=== PATIENT | female | born 1955 | race Caucasian/White ===

== ENCOUNTER 2023-11-22 06:03 | Outpatient (REF) | payer MEDICARE, SELFPAY ==
[2023-11-22 10:39] LABS: MANUAL DIFF FLAG NO
[2023-11-22 10:52] LABS: Basophils Percent Auto 0.5 % (0-2); Eosinophils Absolute Auto 0.2 X10*3/uL (0.0-0.4); Eosinophils Percent Auto 3.3 % (0-4); Hematocrit 45.8 % (37.0-47.0); Hemoglobin 15.2 g/dl (12.0-16.0); Imm Gran Abs Auto 0.01 X10*3/uL (0.00-0.03); Imm Gran Pct Auto 0.2 % (0.0-0.4); Lymphocytes Absolute Auto 2.4 X10*3/uL (1.2-4.9); Lymphocytes Percent Auto 41.8 % (20-40); Mean Corpuscular HGB Conc 33.2 g/dl (31.0-35.0); Mean Corpuscular Hemoglobin 31.7 pg (27.0-33.0); Mean Corpuscular Volume 95.4 fL (80.0-98.0); Mean Platelet Volume 11.6 fL (9.4-12.3); Monocytes Absolute Auto 0.5 X10*3/uL (0.1-1.2); Monocytes Percent Auto 7.7 % (2-11); Neutrophils Absolute Auto 2.7 x10*3/uL (2.0-8.3); Neutrophils Percent Auto 46.5 % (45-73); Platelet Count 278 X10*3/uL (160-400); Red Cell Distribution Width 12.3 % (11.0-16.0); White Blood Count 5.8 X10*3/uL (4.8-10.8)
[2023-11-22 11:22] LABS: Anion Gap 14 (12-20); Blood Urea Nitrogen 16 mg/dL (9-16); Calcium 9.7 mg/dL (8.4-10.2); Carbon Dioxide 23 mmol/L (22-29); Chloride 107 mmol/L (96-108); Cholesterol 265 mg/dL (<200); Estimated Glomerular Filt Rate > 60; Glucose Random 93 mg/dL (60-115); HDL Cholesterol 49 mg/dL (>40); LDL Cholesterol Calculated 189 mg/dL (<100); Sodium 140 mmol/L (135-145); TSH reflex Free T4 5.35 uIU/mL (0.32-4.0); Triglycerides 139 mg/dL (<150)
[2023-11-22 13:01] LABS: Free T4 (Free Thyroxine) 1.05 ng/dL (0.71-1.85)
== END 2023-11-22 06:04 | disposition home or self-care (01) ==
LOC: HO.HMGCLDS 06:03
PROVIDERS: PCP Student in an Organized Health Care Education/Training Program; Visit Provider Student in an Organized Health Care Education/Training Program
DX: Z00.00 Encounter for general adult medical examination without abnormal findings (principal); E03.9 Hypothyroidism, unspecified; E78.2 Mixed hyperlipidemia
CPT/HCPCS: 36415; 80048; 80061; 84439; 84443; 85025

== ENCOUNTER 2024-01-23 12:53 | Outpatient (REF) | payer MEDICARE, SELFPAY ==
[2024-01-23 16:36] LABS: Anion Gap 13 (12-20); Blood Urea Nitrogen 22 mg/dL (9-16); Calcium 10.3 mg/dL (8.4-10.2); Carbon Dioxide 26 mmol/L (22-29); Chloride 104 mmol/L (96-108); Estimated Glomerular Filt Rate > 60; Glucose Random 101 mg/dL (60-115); Sodium 139 mmol/L (135-145)
[2024-01-23 16:52] LABS: Free T4 (Free Thyroxine) 1.15 ng/dL (0.71-1.85); Thyroid Stimulating Hormone 1.86 uIU/mL (0.32-4.0)
== END 2024-01-23 12:54 | disposition home or self-care (01) ==
LOC: HO.HMGCLDS 12:53
PROVIDERS: PCP Student in an Organized Health Care Education/Training Program; Visit Provider Student in an Organized Health Care Education/Training Program
DX: E03.9 Hypothyroidism, unspecified (principal)
CPT/HCPCS: 36415; 80048; 84439; 84443

== ENCOUNTER 2025-04-19 10:30 | Outpatient (AMB) | payer MEDICARE, SELFPAY ==
--- NOTE | 2025-04-19 10:52 | MHC.PC.OV ---
Vital Signs 04/19/25 11:00 04/19/25 13:13 Height 5 ft 5.35 in Weight 188 lb 6 oz BMI 31.0 BP 161/89 H 158/90 H Blood Pressure Location Rt brachial Position Sitting Respiration 16 Pulse 89 Pulse Source Pulse Oximeter Temp 98.1 F Temp Source Temporal Artery Scan Pulse Oximetry (%) 99 Oxygen Delivery Method Room Air Intake Visit Reasons: Establish Care Automatic Trimming Sewer Required: No Accompanied by: Self / Same As Patient Allergies Tetanus Vaccines and Toxoid Adverse Reaction (Mild, Verified 04/19/25 13:14) Swelling Medication List - Last Reconciled 04/19/25 by Lynn Gimenez PA-C No Known Home Meds Tobacco use date assessed: 04/19/25 Fall risk assessment: No Falls in past year Last assessed Fall Risk: 04/19/25 Dental Screening Dental Screen Date: 04/19/25 Did you have a dental visit in the last 12 months?: Yes Did you have a dental problem in the last 6 months where you did not have access to dental care?: No Was dental information given to patient?: Patient has dentist HPI Establish Care HPI Details The patient is a 70-year-old female presenting for a new patient appointment with hypertension, thyroid dysfunction, and for preventative care measures. The patient reports a history of hypertension with blood pressure readings fluctuating around 140/80 mmHg, occasionally reaching 158/90 mmHg. She has been advised to monitor her blood pressure at home, and there is a plan to start low-dose lisinopril. The patient has a history of thyroid dysfunction, previously managed with medication that caused adverse effects such as palpitations. She self-weaned off the medication due to these side effects and is considering endocrinology referral for further management. The patient has been informed of her elevated cholesterol levels, with a previous reading of 250 mg/dL. Lifestyle modifications have been discussed to manage her cholesterol levels without immediate pharmacological intervention. The patient is overweight and has expressed interest in weight management strategies, including potential pharmacotherapy. She engages in regular physical activity, such as walking, and has recently purchased a weighted vest to enhance her exercise routine. Preventative care measures include scheduling a mammogram and bone density scan, as well as routine blood work to assess various health parameters. Social History - Exercise: Engages in regular walking and uses a weighted vest for enhanced physical activity. - Nutrition: Cooks meals using home-grown produce, indicating a focus on healthy eating. [facility] Medical History (Updated 04/19/25 @ 13:46 by Lynn Gimenez PA-C) Preventative health care Hypertension Heart murmur Pure hypercholesterolemia, unspecified Hyperlipidemia Class 1 obesity with body mass index (BMI) of 31.0 to 31.9 in adult Thyroid disease Family History Father CHF (congestive heart failure) Mother Glaucoma Alzheimer dementia Social History Housing: House Alcohol intake: current Alcohol intake frequency: does not drink Patient Tobacco Use Status: Current everyday Tobacco user Tobacco use type: Cigarette service: No Current occupational status: retired Cognitive needs: No Hearing needs: No Vision needs: Yes (rx glasses) Questionnaire PHQ-9 Over the last 2 weeks, how often have you been bothered by any of the following problems? 1. Little interest or pleasure in doing things: not at all 2. Feeling down, depressed, or hopeless: not at all 3. Trouble falling or staying asleep, or sleeping too much: not at all 4. Feeling tired or having little energy: not at all 5. Poor appetite or overeating: not at all 6. Feeling bad about yourself - or that you are a failure or have let yourself or your family down: not at all 7. Trouble concentrating on things, such as reading the newspaper or watching television: not at all 8. Moving or speaking so slowly that other people could have noticed. Or the opposite - being so fidgety or restless that you have been moving around a lot more than usual: not at all 9. Thoughts that you would be better off or of hurting yourself in some way: not at all Total score: 0 Depression Screening Interpretation: Negative Depression Screening Done: Yes 11417 - PHQ-9 Billing: Yes Source: Developed by Drs. Raza Shaver, Ginny Pacheco, Juan M Lei and colleagues, with an educational shoshana from [employer]. Thrive Questionnaire Date Thrive assessed: 04/19/25 I am a: Patient What is your living situation today?: I have a steady place to live Within the past 12 months, did the food you bought not last and you didn't have the money to get more?: Never true Within the past 12 months, did you worry whether your food would run out before you got money to buy more?: Never true Do you have trouble paying for medicines?: No Do you have trouble getting transportation to medical appointments?: No Do you have trouble paying your heating and electricity bill?: No Do you have trouble taking care of your child, family member or friend?: No Do you have trouble with day-to-day activities such as bathing, preparing meals, shopping, managing finances, etc.?: No Are you currently unemployed and looking for a job?: No Are you interested in more education?: No Please select the resources that you would like help with: None THRIVE Score: 0 AUDIT C Alcohol Use Questionnaire (AUDIT-C) 1. How often do you have a drink containing alcohol?: Never 3. How often do you have six or more drinks on one occasion?: Never Total Score: 0 Score Reviewed/Action Taken: No MARGARETH-7 AMB Questionnaire MARGARETH-7 Date MARGARETH - 7 assessed: 04/19/25 Feeling nervous, anxious, or on edge: 1 = Several days Not being able to stop or control worryin = Not at all Worrying too much about different things: 1 = Several days Trouble relaxin = Not at all Being so restless that it is hard to sit still: 0 = Not at all Becoming easily annoyed or irritable: 0 = Not at all Feeling afraid as if something awful might happen: 0 = Not at all Total MARGARETH-7 score (0-4 normal; 5-9 mild; 10-14 moderate; 15-21 severe): 2 Source: Developed by Drs. Raza Shaver, Ginny Pacheco, Juan M Lei and colleagues, with an educational shoshana from [employer]. MARGARETH-7 Assessment Billing MARGARETH-7 Assessment Tool: MARGARETH-7 Assessment 48568 Review of Systems Const Details: - Cardiovascular: Reports palpitations with previous thyroid medication. Denies chest pain or syncope. - Endocrine: Reports previous adverse effects from thyroid medication. Denies current symptoms of hyperthyroidism or hypothyroidism. - Musculoskeletal: Denies pain in legs during examination. All systems reviewed & are unremarkable except as noted in HPI and below Physical exam (Primary Care) Vital Signs: Last Vital Signs Temp 98.1 F 04/19/25 11:00 Pulse 89 04/19/25 11:00 Resp 16 04/19/25 11:00 BP 161/89 H 04/19/25 11:00 Pulse Ox 99 04/19/25 11:00 Oxygen Delivery Method Room Air 04/19/25 11:00 Care Plan Goal for BP management: <140/90 patient will be started on lisinopril 10 mg daily and 1 month for blood pressure check with MAKENNA/MD BMI result Body Mass Index 31.0 BMI Assessment/Plan discussion: High BMI High, discussed plan: lifestyle, weight reduction, dietary, physical activity, alcohol moderation and other Tobacco/Smoking Status: Tobacco use Status Tobacco use date assessed 04/19/25 04/19/25 11:00 Patient Tobacco Use Status Current everyday Tobacco 04/19/25 11:15 Tobacco use type Cigarette 04/19/25 11:15 PHQ-9: PHQ-9 Score PHQ-9: Total score 0 04/19/25 11:00 Depression Screening Interpretation: Negative Thrive Assessment: Date of Thrive Assessment Date Thrive assessed 04/19/25 04/19/25 11:00 Const Other: Appearance: Alert. Oriented X3. No acute distress. Head: Normal external exam. Normocephalic. Atraumatic. Eyes: Pupils are equal, round, and reactive to light. Extraocular movements intact. Conjunctiva and sclera normal. Eyelids normal. Ears: External auditory canal normal. Tympanic membranes normal. Throat: Pharynx normal. Uvula midline. Moist mucous membranes. Neck: Normal inspection. Neck supple. Full range of motion. No adenopathy. Thyroid Normal. No meningeal signs. No neck mass noted. Cardiovascular: Normal heart rate and rhythm. Heart sound normal. A murmur noted. Pulses normal throughout. Respiratory: No respiratory distress. Painless inspiration. Breath sounds normal. No wheezes/rales/rhonchi noted. Chest nontender. No accessory muscle usage noted or decreased air movement noted. Abdomen: Soft and nontender. Bowel sounds normal in all 4 quadrants. No distention noted. No organomegaly noted. No visible injury noted. Back: No costovertebral angle tenderness. Full range of motion noted. Skin: Skin warm and dry. Normal skin color. Normal skin turgor. No rashes/lesions/lacerations noted. Extremities: No lower extremity edema. Extremities exhibit normal range of motion. Extremities nontender. Neuro: Oriented X 3. No motor deficit. No sensory deficit. Reflexes normal. Coding Level of Care Code New Pt Level 4 (59464) Complex EM visit Add On G2211 Diagnoses Hypertension I10 Pure hypercholesterolemia, unspecified E78.00 Hyperlipidemia E78.5 Thyroid disease E07.9 Heart murmur R01.1 Class 1 obesity with body mass index (BMI) of 31.0 to 31.9 in adult E66.811; Z68.31 Preventative health care Z00.00 Additional Codes PHQ-9 - 44651 - PHQ-9 Billing: Yes ([id number]) MARGARETH-7 Assessment Billing - MARGARETH-7 Assessment Tool: MARGARETH-7 Assessment 35505 ([id number]) Time Spent (min) 60 Assessment & Plan Assessment & Plan (1) Hypertension: Code(s): I10 - Essential (primary) hypertension Category: Medical Plan: The patient will start on a low-dose lisinopril 10 mg daily to manage hypertension, with a follow-up in 30 days to assess blood pressure control. Lifestyle modifications, including dietary changes, have been recommended to aid in blood pressure management. (2) Pure hypercholesterolemia, unspecified: Code(s): E78.00 - Pure hypercholesterolemia, unspecified Category: Medical Plan: The patient has been advised on lifestyle modifications to manage cholesterol levels, with a focus on dietary changes. A follow-up cholesterol panel will be conducted to monitor progress. (3) Hyperlipidemia: Code(s): E78.5 - Hyperlipidemia, unspecified Category: Medical Plan: The patient has been advised on lifestyle modifications to manage cholesterol levels, with a focus on dietary changes. A follow-up cholesterol panel will be conducted to monitor progress. (4) Thyroid disease: Code(s): E07.9 - Disorder of thyroid, unspecified Category: Medical Plan: The patient is considering a referral to endocrinology for further evaluation and management of thyroid dysfunction. An ultrasound of the thyroid has been suggested to assess for any structural abnormalities. (5) Heart murmur: Code(s): R01.1 - Cardiac murmur, unspecified Category: Medical Plan: An echocardiogram has been ordered to evaluate the heart murmur and assess for any underlying valvular issues. (6) Class 1 obesity with body mass index (BMI) of 31.0 to 31.9 in adult: Code(s): E66.811 - Obesity, class 1; Z68.31 - Body mass index [BMI] 31.0-31.9, adult Category: Medical Plan: The patient has expressed interest in weight management strategies, including potential pharmacotherapy, and has been advised to continue regular physical activity. A referral to a weight account management specialist may be considered based on insurance approval. (7) Preventative health care: Code(s): Z00.00 - Encounter for general adult medical examination without abnormal findings Category: Medical Plan: The patient will undergo a mammogram and bone density scan as part of routine preventative care. Routine blood work, including a CBC, CMP, and cholesterol panel, will be conducted to assess overall health status. Plan Plan Patient was informed and verbally consented to the use of an ambient scribe for clinic note documentation during this visit. 1. Essential Hypertension The patient will start on a low-dose lisinopril 10 mg daily to manage hypertension, with a follow-up in 30 days to assess blood pressure control. Lifestyle modifications, including dietary changes, have been recommended to aid in blood pressure management. 2. Hypercholesterolemia The patient has been advised on lifestyle modifications to manage cholesterol levels, with a focus on dietary changes. A follow-up cholesterol panel will be conducted to monitor progress. 3. Thyroid Dysfunction The patient is considering a referral to endocrinology for further evaluation and management of thyroid dysfunction. An ultrasound of the thyroid has been suggested to assess for any structural abnormalities. 4. Heart Murmur An echocardiogram has been ordered to evaluate the heart murmur and assess for any underlying valvular issues. 5. Obesity The patient has expressed interest in weight management strategies, including potential pharmacotherapy, and has been advised to continue regular physical activity. A referral to a weight account management specialist may be considered based on insurance approval. 6. Preventative Care The patient will undergo a mammogram and bone density scan as part of routine preventative care. Routine blood work, including a CBC, CMP, and cholesterol panel, will be conducted to assess overall health status. During the visit, I discussed with the patient the management of her hypertension, including starting a low-dose lisinopril and monitoring her blood pressure at home. We also talked about lifestyle modifications to manage her cholesterol levels and the importance of regular physical activity for weight management. I recommended a referral to endocrinology for her thyroid dysfunction and discussed the potential need for an ultrasound to evaluate her thyroid. An echocardiogram was ordered to assess the heart murmur, and we planned for routine preventative care, including a mammogram and bone density scan. Orders: Orders Complete Blood Count Auto Diff Today Z00.00 - Encounter for general adult medical examination without abnormal findings Comprehensive [place]. Panel Fast Today Z00.00 - Encounter for general adult medical examination without abnormal findings Hemoglobin A1c Today Z00.00 - Encounter for general adult medical examination without abnormal findings Lipid Panel Today Z00.00 - Encounter for general adult medical examination without abnormal findings UA CC w/rflx Micro + Cult Today Z00.00 - Encounter for general adult medical examination without abnormal findings XR DEXA axial skeleton Today M81.0 - Age-related osteoporosis without current pathological fracture US thyroid Today E07.9 - Disorder of thyroid, unspecified C Reactive Protein Today Z00.00 - Encounter for general adult medical examination without abnormal findings Liver Panel Today Z00.00 - Encounter for general adult medical examination without abnormal findings Magnesium Today Z00.00 - Encounter for general adult medical examination without abnormal findings Vitamin B12 and Folate Today Z00.00 - Encounter for general adult medical examination without abnormal findings Vitamin D 25-OH Total Today Z00.00 - Encounter for general adult medical examination without abnormal findings TSH reflex Free T4 Today Z00.00 - Encounter for general adult medical examination without abnormal findings MM screening mammo BI Today Z12.31 - Encounter for screening mammogram for malignant neoplasm of breast Triiodothyronine T3 Free Today E07.9 - Disorder of thyroid, unspecified CA echo transthoracic complete Today E07.9 - Disorder of thyroid, unspecified, E66.811 - Obesity, class 1, E78.00 - Pure hypercholesterolemia, unspecified, E78.5 - Hyperlipidemia, unspecified, I10 - Essential (primary) hypertension, R01.1 - Cardiac murmur, unspecified, Z68.31 - Body mass index [BMI] 31.0-31.9, adult Referrals Endocrinology Referral E07.9 - Disorder of thyroid, unspecified Medications: New tirzepatide (weight loss) (Zepbound) for 4 weeks 2.5 mg (0.5 mL) subcut QWEEK 2 mL 0RF E66.811 - Obesity, class 1, E78.00 - Pure hypercholesterolemia, unspecified, E78.5 - Hyperlipidemia, unspecified, Z68.31 - Body mass index [BMI] 31.0-31.9, adult lisinopril 10 mg PO DAILY 30 tabs 0RF Patient Instructions: - Start taking lisinopril 10 mg daily for blood pressure management. - Monitor blood pressure at home and record readings. - Follow a heart-healthy diet to manage cholesterol levels. - Engage in regular physical activity, such as walking, and consider using a weighted vest. - Schedule and complete a mammogram and bone density scan. - Complete routine blood work as ordered, ensuring to fast before the tests. - Follow up with endocrinology for thyroid evaluation and management. - Attend follow-up appointment in 30 days to reassess blood pressure and overall health.
[2025-04-19 11:00] VITALS: BP 161/89; PULSE 89; RESP 16; TEMP 36.7; O2SAT 99; BMI 31.0
--- OUTSIDE RECORDS SUMMARY | 2025-04-19 12:25 | XMS_ITS | Data Portability ---
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 Plan of Treatment Reminders Order Date Submit Date Provider Last Modified By Organization Details Last Modified Time Details Appointments None recorde d. Lab TSH + free T4, serum [email or web address] [place] [address] Lab, [place], [address], 09:08:42 BMP, serum or plasma [email or web address] [place] [address] Lab, [place], [address], 09:08:42 TSH, ultra-s ensitiv e, serum 2023 024 [facility] (Centralized Electronic Ordering - All Locations), Patient Can Go To The Location Of Their Choice, 08:42:48 lipid panel, serum 2023 024 [facility] (Centralized Electronic Ordering - All Locations), Patient Can Go To The Location Of Their Choice, [id number] 11:07:29 BMP, serum or plasma 2023 024 [facility], [address], [place], [address], 4 08:42:48 CBC w/ auto diff 2023 024 [facility], [address], [place], [address], 4 11:14:03 TSH, serum or plasma 2021 022 [facility], [address], [address], [place], [address], 2 10:19:54 T4, free, serum 2021 022 [facility], [address], [address], [place], [address], 2 10:18:20 lipid panel, serum 2021 022 [facility], [address], [address], [place], [address], 2 08:32:14 ALT (alanin e aminotr ansfera se), serum or plasma 2021 022 [facility], [address], [address], [place], [address], 2 08:32:18 Referral gastroe nterolo gist referra l 2021 022 [email or web address] Not available 3 11:30:24 Procedures colonos copy screeni ng (PROC) 2021 022 [email or web address] Not available 3 13:26:41 Surgeries None recorde d. Imaging US, retrope ritoneu m, complet e - kidney and bladder [id number] [place] [address] (Central Scheduling Radiology), [address] [place] [address], [address], 11:57:53 bone density 2023 024 [email or web address] Not available 09:11:30 MAMMO, screeni ng, bilater al - Perform Diagnos tic Mammogr am and Breast Ultraso und if needed / Perform Ultraso und Guided Aspirat ion and/or Breast Biopsy if warrant ed 2021 022 [facility] Not available 10:50:24 Medication Orders None recorde d. Patient TargetsNo targets recorded. Patient Instructions Encounter Date Encounter Id Patient Instructions Last Modified By Organization Details Last Modified Time 03/30/2022 [id number] well visit, over 65: care instructions [email or web address] Not available 03/30/2022 15:49:34 11/15/2023 [id number] insomnia: care instructions Not available 11/15/2023 08:42:39 well visit, over 65: care instructions Not available 11/15/2023 08:42:39 preventing falls: care instructions Not available 11/15/2023 08:42:38 Quitting Tobacco: Care Instructions Not available 11/15/2023 08:53:34 02/25/2024 [id number] Quitting Tobacco: Care Instructions Not available 02/25/2024 14:00:50 insomnia: care instructions Not available 02/25/2024 14:00:49 06/04/2024 [id number] high blood pressure: care instructions Not available 06/04/2024 09:08:42 learning about high blood pressure Not available 06/04/2024 09:08:42 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 [address] Medic al Direc tor - Allis on Kwaku kendall MD Not Available [facility] [address] [place] [address], [address], 04/10/2022 08:32:14 04/10/20 22 04/10/2022 LIPID PROFI LE cholesterol 238 mg/dL 0-200 high Not Available [facility] [address] [place] [address], [address], 04/10/2022 08:32:14 04/10/20 22 04/10/2022 LIPID PROFI LE triglyceride s 87 mg/dL 0-150 Not Available [facility] [address] [place] [address], [address], 04/10/2022 08:32:14 04/10/20 22 04/10/2022 LIPID PROFI LE HDL cholesterol 54 mg/dL >40 Not Available [facility] [address] [place] [address], [address], 04/10/2022 08:32:14 04/10/20 22 04/10/2022 LIPID PROFI LE LDL calculated 167 mg/dL 0-100 high Not Available [facility] [address] [place] [address], [address], 04/10/2022 08:32:14 04/10/20 22 04/10/2022 LIPID PROFI LE TC-HDLC ratio 4.4 mg/dL 0-4.4 Not Available [facility] [address] [place] [address], [address], 04/10/2022 08:32:14 04/10/20 22 04/10/2022 SGPT comments [facility], a membe r of [facility] [address] [facility]. [place], [place] [address] Medic al Direc tor - Allis on Kwaku kendall MD Not Available [facility] [address] [place] [address], [address], 04/10/2022 08:32:18 04/10/20 22 04/10/2022 SGPT SGPT 28 U/L 10-60 Not Available [facility] [address] [place], [address], 04/10/2022 08:32:18 04/10/20 22 04/10/2022 FREE T4 comments [facility], shade membe r of [address] [place] [address] Medic al Direc tor - Allis on Kwaku kendall MD Not Available [facility] [address] [place], [address], 04/10/2022 10:18:20 04/10/20 22 04/10/2022 FREE T4 free T4 1.05 NG/dL 0.70-1 .80 Not Available [facility] [address] [place] [address], [address], 04/10/2022 10:18:20 04/10/20 22 04/10/2022 TSH comments [facility] shade trujillo membe r of [address] [place] [address] Medic al Direc tor - Allis on Kwaku kendall MD Not Available [facility] [address] [place] [address], [address], 04/10/2022 10:19:53 04/10/20 22 04/10/2022 TSH TSH 7.73 uIU/m L 0.40-4 .00 high Not Available [facility] [address] [place] [address], [address], 04/10/2022 10:19:53 04/18/20 22 04/18/2022 MAMMO , scree simona, bilat eral No observ ation record ed. [id number] [facility] Imaging Dept [address] [place], [address], 04/18/2022 11:21:25 06/25/20 24 06/25/2024 US retro perit mercado compl ete See Note [facility] , a member of [facility] t Name: EUGENIA MARTEL Date of : 1954 Reason for Exam: Hypert ension Exam Date: 2023 [id number] EST Report Status : Final Orderi ng Provid er: AMPARO MONTOYA PCP: AMPARO MONTOYA Renal ultras ound, 2023. HISTOR Y: Hypert ension . TECHNI QUE: Graysc alcira, color Dopple r, and spectr al Dopple r ultras ound of the kidney s. COMPAR JOSHUA: None. FINDIN GS: The right kidney measur es 11 cm in length and the left kidney measur es 11.5 cm in length . 9 x 9 x 14 mm cyst in the lower pole of the right kidney . Mildly promin ent extrar enal pelvis on the right. No hydron ephros is. Normal sonogr aphic appear ance of the urinar y bladde r. Both ureter al jets visual ized. Post void residu al of 10 mL. IMPRES ROSARIO: Small cyst in the lower pole of the right kidney . Otherw ise unrema rkable exam. ------ -- FINAL REPORT ------ -- Dictat ed By: Jose Rodriguez Dictat ed Date: 2023 14:20 ET Assign ed Physic hung: Jose Rodriguez Review ed and Electr onical ly Signed By: Jose Rodriguez Signed Date: 2023 14:43 ET Workst ation ID: [id number] Transc ribed By: Self Edit Transc ribed Date: 2023 14:[address], [address], 06/26/2024 13:16:55 Result Notes None recorded. Problems Name Problem SNOMED Code Status Onset Date Resolution Date Notes Provider Name and Address Organization Details Recorded Time Fatigue 33524147 Completed 08/07/[address] [facility] [place] 8 14:41:38 Heel pain 4454775 Completed 04/25/[address] [facility] [place] 6 15:49:02 Hypercho lesterol emia 30496318 Active Shannen alexandra [facility] 6 21:59:42 Acute pharyngi tis 400465853 Completed 08/07/2017 Lynsey alexandra, [facility] 8 14:41:42 Insomnia 186021120 Active Shannen alexandra [facility] 6 21:49:10 Single major depressi ve episode, mild Completed 11/15/2023 KARLA OCHOA MD [address], [place] [address] 4 08:49:07 Screenin g for malignan t neoplasm of breast Completed 201008/07/2017 RECORDED 1 2:02PM BY ELVER TINOCO , OFFICE VISIT Lynsey alexandra, [facility] 8 14:41:17 Screenin g for malignan t neoplasm of colon Completed 201008/07/2017 RECORDED 1 2:02PM BY ELVER TINOCO , OFFICE VISIT Lynsey alexandra, [facility] 8 14:41:22 Tobacco dependen ce syndrome 83313899 Completed 201004/25/2016 RECORDED 1 2:19PM BY ELVER TINOCO , OFFICE VISIT Shannen alexandra [facility] 6 15:49:08 Low back pain 503695123 Active 2010 Lynsey alexandra [facility] 8 14:41:37 Adult health examinat ion Completed 201008/07/2017 IMPRESSIO N: PAP AND MAMMO UTD, WORK ON BACK PIAN SO CAN EXERCISE; RECORDED 1 7:49PM BY SHANNEN EASTON MD, OFFICE VISIT Lynsey Ramirez MA null, [facility] 8 14:41:20 Pure hypercho lesterol emia 468804911 Completed 201108/07/2017 Shannen guzman null, [facility] 8 15:05:17 Acquired hypothyr oidism 287322536 Active 2021 Isatu Juan son null, [facility] 2 07:33:55 Ex-smoke r 2625879 Completed 202311/15/2023 4 cigs a day, loss the a family member KARLA OCHOA MD [address], [place], [address], [facility] 4 08:48:49 Nicotine dependen ce 63427781 Active 2023 KARLA OCHOA MD [address], [place], [address], [facility] 4 08:49:01 Major depressi on in remissio n 00642851 Active 2023 KARLA OCHOA MD [address], [place], [address], [facility] 4 08:49:15 Problem Notes None recorded. Procedures Surgical History Date Name Laterality Status Provider Name and Address Organization Details Recorded Time 11/10/19 23 Date of Last Colonoscopy completed Kerry Villarreal MA [facility] 11/15/2023 08:21:26 11/10/19 23 Colonoscopy completed Ying Zhong [facility] 11/09/2022 09:11:41 04/18/20 22 Most Recent Mammogram completed Martha Aly [facility] 04/18/2022 11:21:18 04/18/20 22 Mammogram both breasts completed Martha Aly [facility] 04/18/2022 11:21:08 09/13/19 18 hysterectomy completed Kerry Villarreal MA [facility] 08/11/2018 15:38:31 07/15/19 18 Hysterectomy completed Kerry Villarreal MA [facility] 03/30/2022 15:07:49 07/15/19 18 Joint Replacement completed Kerry Villarreal MA [facility] 03/30/2022 15:07:49 Arthroscopic Surgery completed Kerry Villarreal MA [facility] 03/30/2022 15:07:49 Imaging Results None recorded. Procedure Notes None recorded. Medical Equipment None Reported. Allergies Allergen ID Allergen Name Allergen Category Reaction Reaction Severity Criticality Documentation Date Start Date Code Code System Note Provider Name and Address Organization Details Recorded Time 3777 Vaccine product containin g only Clostridi um tetani antigen (medicina l product) medicatio n Not available Not available Not available 01/26/20142010 74274 2002 SNOMED Lynsey Bigby JAJA ibrahima [facility] 8 14:40:24 Medications Name Sig Start Date Stop Date Status Note LastModified by Organization Details LastModified Time cyclobenz aprine 10 mg tablet QHS PRN SPASM 08/12 completed RECORDED 10/10/19 12 12:45PM BY SHANNEN Marvin MD, MEDICATI ON AUTO-DIXON CTIVATIO N; Not Available Not Available Not Available amoxicill in 500 mg capsule TAKE 1 CAPSULE BY MOUTH EVERY 8 HOURS UNTIL GONE 11/14 completed Not Available Not Available Not Available citalopra m 10 mg tablet TAKE 1 TABLET BY MOUTH EVERY DAY 03/30 completed Not Available Not Available Not Available hydrocodo ne 5 mg-acetam inophen 325 mg tablet active Not Available Not Available Not Available prednison e 20 mg tablet Take 2 tablets every day by oral route for 5 days. 02/10 completed Not Available Not Available Not Available betametha sone, augmented 0.05 % topical cream 02/10 completed Not Available Not Available Not Available metronida zole 250 mg tablet active Not Available Not Available No t Available permethri n 5 % topical cream APPLY (THOROUG HLY MASSAGE INTO SKIN FROM HEAD TO SOLES OF FEET) BY TOPICAL ROUTE ONCE LEAVE ON FOR 8-14 HR, THEN REMOVE BY THOROUGH WASHING repeat in 2 weeks 02/10 completed Not Available Not Available Not Available amoxicill in 500 mg tablet TAKE 4 TABLETS BY MOUTH 1 HOUR PRIOR TO DENTAL PROCEDUR E 02/24 completed Not Available Not Available Not Available levothyro xine 25 mcg tablet Take 1 tablet every day by oral route for 30 days. 04/16 completed Not Available Not Available Not Available warfarin 4 mg tablet active Not Available Not Available Not Available levothyro xine 75 mcg tablet TAKE 1 TABLET BY MOUTH EVERY DAY active Not Available Not Available No t Available Supartz 10 mg/mL intra-art icular syringe active Not Available Not Available Not Available lorazepam 0.5 mg tablet Take 1 tablet every day by oral route at bedtime for 30 days. 03/30 completed Not Available Not Available Not Available levothyro xine 50 mcg tablet TAKE 1 TABLET BY MOUTH EVERY DAY FOR 30 DAYS 11/25 completed Not Available Not Available Not Available cephalexi n 500 mg capsule 08/07 completed Not Available Not Available Not Available ibuprofen 600 mg tablet TAKE 1 TABLET BY MOUTH THREE TIMES A DAY NEEDED active uses for headache s Not Available Not Available Not Available methylpre dnisolone 4 mg tablets in a dose pack TAKE 6 TABLETS ON DAY 1 DIRECTED ON PACKAGE AND DECREASE BY 1 TAB EACH DAY FOR A TOTAL OF 6 DAYS. 03/30 completed Not Available Not Available Not Available Naprosyn 500 mg tablet DAILY active RECORDED 07/13/20 11 2:19PM BY ELVER BURNETT I, OFFICE VISIT; Not Available Not Available Not Available oxycodone 5 mg tablet 12/04 completed Not Available Not Available Not Available GaviLyte- G 236 gram-22.7 4 gram-6.74 gram-5.86 gram oral solution TAKE 8 OUNCE BY MOUTH DIRECTED 11/14 completed Not Available Not Available Not Available Vitals Date Recorded Body height Body mass index (BMI) Body weight Oxygen saturation Oxygen saturation in Arterial blood by Pulse oximetry Heart rate Body temperature Systolic And Diastolic Provider Name and Address Organization Details Last Updated DateTime 4 165.1 cm 33.1 kg/m2 07666.8 8 g 98 % 98 % 82 /min 98.3 [degF] 127/75 mm[Hg] Kerry Villarreal MA [facility] 4 08:18:37 Date Recorded Body height Body mass index (BMI) Body weight Body temperature Oxygen saturation Oxygen saturation in Arterial blood by Pulse oximetry Heart rate Systolic And Diastolic Provider Name and Address Organization Details Last Updated DateTime 4 165.1 cm 31.2 kg/m2 95017.5 7 g 97.6 [degF] 99 % 99 % 110 /min 138/83 mm[Hg] Kerry Villarreal MA [facility] 4 13:35:04 Date Recorded Body height Body mass index (BMI) Body weight Oxygen saturation Oxygen saturation in Arterial blood by Pulse oximetry Heart rate Body temperature Systolic And Diastolic Provider Name and Address Organization Details Last Updated DateTime 4 165.1 cm 31.5 kg/m2 89683.3 6 g 98 % 98 % 94 /min 97.7 [degF] 132/81 mm[Hg] Kerry Villarreal MA [facility] 4 11:05:05 Date Recorded Body height Body mass index (BMI) Body weight Oxygen saturation Oxygen saturation in Arterial blood by Pulse oximetry Heart rate Body temperature Systolic And Diastolic Provider Name and Address Organization Details Last Updated DateTime 2 165.1 cm 31 kg/m2 59629.2 8 g 98 % 98 % 85 /min 98.06 [degF] 122/79 mm[Hg] Kerry Villarreal MA [facility] 2 15:14:21 Date Recorded Systolic And Diastolic Provider Name and Address Organization Details Last Updated DateTime 06/04/2024 120/64 mm[Hg] KARLA OCHOA MD [address], [place], [address], [facility] 06/04/2024 09:03:17 Date Recorded Body height Body mass index (BMI) Body weight Heart rate Oxygen saturation Oxygen saturation in Arterial blood by Pulse oximetry Body temperature Systolic And Diastolic Provider Name and Address Organization Details Last Updated DateTime 4 165.1 cm 31.3 kg/m2 39386.3 7 g 88 /min 99 % 99 % 98.2 [degF] 151/91 mm[Hg] Eliana Ley MA [facility] 08:50:27 Social History Question Answer Notes LastModified by Organizat ion Details LastModified Time Tobacco Smoking Status Current Every Day Smoker JAJA Quintana [facility] 11/15/2023 08:20:25 Is Blood Transfusion Acceptable In An Emergency? Yes [email or web address] Information not available 04/20/2015 What Is Your Level Of Caffeine Consumption? Moderate [email or web address] Information not available 03/12/2014 How Much Tobacco Do You Chew? None [email or web address] Information not available 03/30/2022 What Type Of Diet Are You Following? REGULAR [email or web address] Information not available 03/12/2014 When Did You Quit Smoking? 6-10yearssi ncelastciga rette [email or web address] Information not available 03/30/2022 Are There Any Guns Present In Your Home? No [email or web address] Information not available 03/30/2022 Live Alone Or With Others? With Others [email or web address] Information not available 03/30/2022 Do You Take Precautions To Prevent Distracted Driving? Yes [email or web address] Information not available 04/20/2015 How Often Do You Need To Have Someone Help You When You Read Instructions, Pamphlets, Or Other Written Material From Your Doctor Or Pharmacy? Never [email or web address] Information not available 03/30/2022 Have You Served In The ? No [email or web address] Information not available 04/25/2016 *AWV ONLY* Are You Presently Prescribed Opioid Medication By PCP Or Specialist? If YES -Provider Assess The Benefit For Other, Non-opioid Pain Therapies Instead, Even If The Patient Does Not Have OUD But Is Possibly At Risk. No [email or web address] Information not available 11/15/2023 What Was The Date Of Your Most Recent Tobacco Screening? 03/30/2020 [email or web address] Information not available 11/15/2023 How Many Children Do You Have? 3 [email or web address] Information not available 03/12/2014 What Is Your Current Pack Years? 10packyears [email or web address] Information not available 03/30/2022 What Is Your Relationship Status? [email or web address] Information not available 03/30/2022 Do You Use Your Seat Belt Or Car Seat Routinely? Yes [email or web address] Information not available 03/30/2022 Seat Belts Used Routinely Yes [email or web address] Information not available 03/30/2022 Are You Sexually Active? No [email or web address] Information not available 03/30/2022 Smoke Alarm In Home Yes [email or web address] Information not available 03/30/2022 Do You Have Smoke And Carbon Monoxide Detectors In Your Home? Yes [email or web address] Information not available 03/30/2022 At What Age Did You Start Smoking Tobacco? 17 Information not available 03/30/2022 Are You Passively Exposed To Smoke? No [email or web address] Information not available 08/07/2017 How Much Tobacco Do You Smoke? No 4 Cigarrettes A Day [email or web address] Information not available 11/15/2023 General Stress Level Low [email or web address] Information not available 11/15/2023 Do You Use Sunscreen Routinely? Yes [email or web address] Information not available 03/12/2014 How Many Years Have You Smoked Tobacco? 15 [email or web address] Information not available 03/30/2022 Sex: Unknown Functional Status Question Answer Note LastModified by Organizat ion Details LastModified Time What is your level of alcohol consumption? Occasional [email or web address] Information not available 03/12/2014 Do you or have you ever used smokeless tobacco? Never used smokeless tobacco [email or web address] Information not available 03/30/2022 Are you currently employed? Yes [email or web address] Information not available 03/12/2014 Are you able to walk independently without assistance or assistive devices? YESWOREST [email or web address] Information not available 03/30/2022 Are you able to care for yourself independently? 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 Moderate [email or web address] Information not available 03/30/2022 Mental Status None recorded. Family History Relationship Description Onset Age of this Age Resolved Age Notes LastModified by Organization Details LastModified Time Mother Dementia [email or web address] Not availab le 04/20/2015 14:41:02 Brother Parkinson's disease [email or web address] Not available 2021 14:52:49 Notes:No breast or colon can cer Medical History Condition Response Coronary Artery Disease N Gout N Other N Blood Diseases N Kidney Stones N Hyperthyroidism N Breast Cancer N mrsa exposure N Depression N COPD N Lung Disease N Hypothyroidism N Defects or Inherited Disease N Developmental or Behavioral Disorders N Breast Problem N Anesthesia Complications N Headaches/Migraines N Varicose Veins N Anxiety Disorder N Muscle, Joint, or Bone Problems Y Obesity N Vision or Eye Problems Y Arthritis N Head Injury/Concussion N Polyps N Infertility N Mental Disorder N Congenital Anomalies N Acid Reflux (GERD) N Cancer N Stroke N ADHD N Endometriosis N High Cholesterol N Liver Disease N Headaches N Fibromyalgia N Kidney Disease N Heart Problems N Ear or Hearing Problems N Hospitalizations N Thyroid Problems N GI Problems N Developmental Delay N Acne N Skin Problems N Eating Disorder N Anemia N Constipation N Bladder Problems N Mental Illness N Ovarian Cancer N Diabetes N Bedwetting N Blood Transfusions N Seizures/Epilepsy N Heart Problems/Murmur N Tuberculosis N AIDS/HIV N Congestive Heart Failure (CHF) N Eczema N Diverticulitis N Abuse/Domestic Violence N Asthma N Allergies N Reflux/GERD N Hepatitis N Heart Disease N Pulmonary Embolism N Hypertension N Chicken Pox N Autism Spectrum Disorder (ASD) N Osteoporosis N Gynecological History Statement/Question Response Date of Last Pap Smear Date of Last Colonoscopy 11/09/2022 Most Recent Mammogram 04/18/2022 Obstetrics History GPAL:G 0 P 0 0 0 0 Immunizations Vaccine Type Date Status Note Provider Nam e and Address Organization Details Recorded Time Influenza, split virus, quadrivalent, preservative 6 completed JAJA Quintana, [facility] 04/25/2016 15:25:20 Influenza, split virus, quadrivalent, preservative 7 completed JAJA Quintana [facility] 08/07/2017 14:54:01 Influenza, split virus, quadrivalent, preservative 8 completed JAJA Quintana [facility] 08/11/2018 15:34:41 COVID-19, mRNA, LNP-S, PF, 30 mcg/0.3 mL dose 1 completed JAJA Quintana [facility] 03/30/2022 15:15:07 COVID-19, mRNA, LNP-S, PF, 30 mcg/0.3 mL dose 1 mahesh Villarreal, [place] null, [facility] 03/30/2022 15:15:07 COVID-19, mRNA, LNP-S, PF, 30 mcg/0.3 mL dose 0 completed JAJA Quintana, [facility] 03/30/2022 15:15:07 Influenza, high-dose, trivalent, PF 5 completed JAJA Quintana, [facility] 03/30/2022 15:15:07 Influenza, adjuvanted, trivalent, PF 4 completed JAJA Presley, [facility] 06/04/2024 08:50:43 Past Encounters Encounter ID Performer Location Encounter Start Date Encounter Closed Date Diagnosis/Indication Diagnosis SNOMED-CT Code Diagnosis ICD10 Code Diagnosis IMO Codes Diagnosis Note [id number] [employer] [facility] [address] [place] [address] [address] [place] [address] 07/13/2011 00:00:00 [id number] Shannen gill MD Main Office [address] [facility] [address] [place] [address] 03/12/2014 12:44:04 03/12/2014 14:04:15 Adult health examination [id number] utd on pap amnd colonoscpy , will setup mammogram, is overdue Pure hypercholesterolemia 766344978 Fatigue 94642685 check sugarfatig ue Heel pain 2657175 right heel, no plantar fasciatis or achilles involvemen t, pt to use good shoes, most likely due to trauma form left knee pain and limping. [id number] TYRON Grigsby Main Office [address] [facility] [address] [place] [address] 06/14/2014 11:20:55 06/14/2014 12:01:43 Acute thoracic back pain [id number] likely rhomboid strain. will get cxr since is a smoker and she is worried about lung cancer. she will call if worsening. Tobacco de pendence syndrome [id number] Shannen gill MD Main Office [address] [facility] [address] [place] [address] 04/20/2015 14:07:03 04/20/2015 15:24:23 Adult health examination 868400522 Z00.00 utd on pap and colonoscop y, will setup mammogram, is overdue and she works at [employer] Hypercholesterolemia 136 85884 E78.0 check fasting Fatigue 54422731 R53.83 check sugar [id number] Jigar Marmolejo MD Main Office [address] [address] [place] [address] 06/07/2015 14:08:22 06/07/2015 15:13:08 Acute pharyngitis 915987799 J02.9 her throat pain is probably from PND from allergies. She will try OTC fluticason e and loratadine and will call her next week if her symptoms persist. [id number] Shannen gill MD Main Office [address] [address] [place] [address] 10/06/2015 10:38:03 10/06/2015 11:27:05 Insomnia 584160645 G47.00 treat as below, treating depression too Single austyn or depressive episode, mild 478913749 F32.0 start with .5mg return 6 weeks Fatigue 10042471 R53.83 check sugar Hypercholesterolemia 136 07061 E78.0 check lab she is due [id number] Shannen gill MD Main Office [address] [address] [place] [address] 11/14/2015 14:05:54 11/14/2015 15:02:43 Insomnia 703968904 G47.00 treat as below, treating depression too Single austyn or depressive episode, mild 300980151 F32.0 mood improving [id number] Shannen gill MD Main Office [address] [address] [place] [address] 04/25/2016 15:11:58 04/25/2016 16:05:21 Adult health examination 165356797 Z00.00 utd on pap and colonoscop y, will setup mammogram, is overdue and she works at [employer] mammogram Ex-smoker 3268473 Z87.[address] chest screening due to less than 20 years and less than a pack a day quit smoking Insomnia 415322647 G47.0 0 treat as below, treating depression too Single austyn or depressive episode, mild 060400210 F32.0 mood is good, continue meds [id number] Shannen gill MD Main Office [address] [facility] [address] [place] [address] 08/07/2017 14:15:57 08/07/2017 15:23:24 Screening for malignant neoplasm of breast 629818699 Z12.39 pt to set up appt Adult heal th examination 147054567 Z00.00 pap is utd, will get hysterecto my. soon, mammo is utd and colonoscop y too Hypercholesterolemia 136 60076 E78.2 check fasting, is on WW Uterine prolapse 9013402 5 N81.4 will be getting surgery by Dr Redmond, laproscopi c Urinary incontinence 165 934924 R32 will get bladder suspension . Single austyn or depressive episode, in full remission 613963102 F32.5 well controlled on celexa Skin lesion 89452567 L98 .9 mole on back that needs to be checked [id number] Shannen gill MD Main Office [address] [facility] [address] [facility] [place] [address] 12/04/2017 10:16:01 12/04/2017 10:57:30 Pruritic rash 99756534 L28.2 most likley contact dermatitis to wearing a new shirt or neck pillow with perfuse on it, also scabies as below, tx with prednisone , if nto better see adele Infestatio n by Sarcoptes scabiei dani hominis 530695646 B86 tx as instructed [id number] Shannen gill MD Main Office [address] [facility] [address] [place] [address] 02/10/2018 10:35:52 02/10/2018 11:15:02 Achilles tendinitis 31423387 M76.61 pt to ice, rest, wear sneakers, stretch, set up PT and if not better call for podiatry referral, med as below with food, stop if any GI upset Single austyn or depressive episode, mild 095062837 F32.0 pt stopped meds, feels her mood is good. [id number] Shannen gill MD Main Office [address] [facility] [address] [place] [address] 08/11/2018 15:20:07 08/11/2018 16:10:53 Adult health examination 689211684 Z00.00 pt will set up mammogram, is overdue, she colonoscop y utd, and no pap needed. 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 Social and family history reviewed. Immunizati ons reviewed, advised annual flu shot, can get at work, rec shingles vaccine. She is up to date oneye providers, due for dentist, mammogram up to date, colon up to date, Reviewed diet and exercise. Hypercholesterolemia 136 41552 E78.2 Acquired hypothyroidism 882060338 E03.9 Insomnia 663933398 G47.0 9 discussed sleep hygeine, use melatonin at night, do no stay in bed awake for more than 20 min, do alterative choice until sleep and then return to bed, pre worry , progressiv e relaxation , bed later, she is getting 6 hour but goes to bed early. Add exericise Major depr ession single episode, in partial remission 53325173 F32.4 stable, no meds at this time Screening for malignant neoplasm of breast 723619892 Z12.39 has appt in apr Screening for malignant neoplasm of colon 576153855 Z12.11 pt to set up appt [id number] KARLA OCHOA MD Main Office [address] [facility] [address] [place] [address] 11/15/2023 08:05:18 11/15/2023 08:46:30 Adult health examination 496647991 Z00.00 Health Maintenanc e FemaleA) Patient was counseled on healthy diet, exercise and nutrition due to BMI of 33.1 B) ScreeningL ast Mammogram: start at age 50 stop at 76Date: 04/18/2022 Result: BIRADS-2Ne xt: DUE Last Pap smear: s/p hysterecto my Last Colonoscop y: start at age 45-75Date: 11/09/2022R esult: diverticul osis and internal hemorrhoid sNext: 10 years Last DEXA scan:Date: due at 67Result: ???Next ordered Low dose CT scan: does not yet meet criteria C) Vaccines:I nfluenza: refusedTdA P: allergicZo ster: never had chicken dkoYRP66: due at 34VWIE28: due at 89NYU46:PC V15:COVID: 07/06/2020 , 07/27/2020, 04/14/2021 D) Routine blood work orderedE) Updated patient's history RTC in one year for annual exam or sooner if any acute complaints Acquired hypothyroidism 293491663 E03.9 - c/w levothyrox ine 50mcg- will check levels Hypercholesterolemia 136 18670 E78.2 Insomnia 912222050 G47.0 9 - currently under good control- counselled on sleep hygiene Fatigue 72950228 R53.83 Z00.00 Bone density finding 385 236694 M85.89 Nicotine dependence 5629 4008 F17.200 - pt started smoking again after approximat don 15 years of stopping- currently smoking 4 cigs a day- is thinking about quitting [id number] KARLA OCHOA MD Main Office [address] [facility] [address] [facility] [place], [place] [address] 02/25/2024 13:23:27 02/25/2024 13:52:51 Acquired hypothyroidism 509619569 E03.9 - c/w levothyrox ine 75mcg- recent levels were normal done on 01/2024 Hypercholesterolemia 136 47071 E78.2 - ASCVD score of 7.3%- need to monitor LDL has currently 189, elevated cholestero l- pt has increased her exercise and has lost weight Pt counselled on:- Eat a heart-heal thy diet- Choose healthy fats. Avoid saturated fats that are found primarily in red meat, henderson, sausage, and full-fat dairy products. Advised to choose lean proteins like chicken, turkey, and fish when possible. Switch to low-fat or fat-free dairy. And use monounsatu rated fats like olive and canola oil for cooking.- Cut out the trans fats. Trans fats are found in fried food and processed foods, like cookies, crackers, and other snacks.- Eat more omega-3s. Counseled on eating more fish, including salmon, mackerel, gerber ,nuts and seeds, like walnuts and flax seeds.- Increase your fiber intake. By eating more oats, brain, fruits, beans, and vegetables , can lower your LDL cholestero l levels.- Eat more fruits and veggies. Insomnia 498412755 G47.0 9 - currently under good control- counselled on sleep hygiene Nicotine dependence 5629 4008 F17.200 - pt started smoking again after approximat don 15 years of stopping- currently smoking 4 cigs a day- is thinking about quitting Elevated blood-pressure reading without diagnosis of hypertension 387330156 R03.0 - BP today is 138/83- pt is usually under very good control however had a very stressful visit prior to seeing MD today Tachycardia 7870247 R00. 0 - HR noted to be 110, similar on repeat- elevated HR due to tachycardi a- RTC in one week, if no improvemen t EKG- ED precaution s given [id number] KARLA OCHOA MD Main Office [address] [place] [address] 03/03/2024 10:40:41 03/03/2024 11:19:00 Elevated blood-pressure reading without diagnosis of hypertension 805580652 R03.0 - BP today is 132/81 improved from last time- pt is usually under very good control however had a very stressful visit prior to seeing today- pt was advised to get BP machine to check her blood pressure at home- RTC in May as pt will get BP machine in April Tachycardia 3050893 R00. 0 - resolved- HR today is 94 [id number] KARLA OCHOA MD Main Office [address] [place] [address] 06/04/2024 08:35:22 06/04/2024 09:08:41 Essential hypertension 95177933 I10 - oscillatin g between goal and elevated- new diagnosis- BP today is 151/91 and on repeat 120/64- home BP 135/86 (taken for 2 weeks)- will have patient continue to monitor at home- ordered U/S renal and bladder- please note patient may need ambulatory blood pressure monitor -> will send to nephrology for this at next visit it blood pressure is still oscillatin g- RTC in 3 months Pt counselled on:-Dietar y Approaches to Stop Hypertensi on (DASH) is an eating plan rich in fruits, vegetables , whole grains, fish, poultry, nuts, legumes, and low-fat dairy. These foods are high in rosales nutrients such as potassium, magnesium, calcium, fiber, and protein.-A dvised continued adherence to medication s and low salt diet - extensive counsellin g done regarding dietary habits.-En couraged regular aerobic exercise 30 min for 4-5 x week.-BP monitoring at home advised to bring log at every visit-Side -effects of high BP can cause Stroke, Heart attack and even d/w pt-D/w pt when to call 911 or reach out to Health care provider:> Think you are having a reaction to a medicine you are taking.>Teague ve headaches that keep coming back (recurring ).>Feel dizzy.>Hav e swelling in your ankles.>Teague ve trouble with your vision. Acquired hypothyroidism 460811566 E03.9 - pt has stopped levothyrox ine 75mcg as it was making her feel unwell- ordered repeat levels as patient stopped medication Health Concerns Section Related Observation LastModified by Organization Detai ls LastModified Time None Recorded Concern Status LastModified by Organization Details LastModified Time None Recorded Advance Directives Directive None Recorded Payers Insurance Date Sequence Insurance Name Policy Number Policy Sood Covered Member ID Sood Member ID Guarantor Name 11/26/2024 1 [employer] [facility] [employer] (MEDICARE REPLACEMEN T/ADVANTAG E - PPO) [id number] Eugenia Martel [id number] Eugenia Martel 02/25/2024 1 [employer] (POS) [id number] Eugenia Martel [id number] Eugenia Martel 02/25/2024 1 [facility] [id number] Eugenia Martel [id number] Eugenia Martel Notes Date Note Type Note Provider Name and Address Organization Details Recorded Time 2 text/html Medicare Annual Wellness VisitReported by Patient Generic HPI TemplateReported by Patient Physical age 68, 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 Mid racing. no DFA sleeps 6 hours 9-3. [facility] 07:36:06 4 text/html Medicare Annual Wellness VisitReported by PatientSocial/Behavioral HistoryFor physical activity, patient reportsdecreased physical activity(pt walks 50 mins 4x a week). For diet and nutrition, patient reportshealthy dietanddiscussed vitamin and supplement use(using lavender to help with anxiety and settle the stomach). For fracture risk, patient reportsno history of fractures.Mental Status:For concentration and memory, patient reportsforgetting wordsbut reportsno decreased concentrating abilityandno memory lapses or loss. For depression risk, patient reportsnever feels sad, empty, or tearful,no loss of interest in activities,no significant changes in weight,no sleep disturbances or insomnia,no agitation,no loss of energy,no feelings of worthlessness or guilt, andno thoughts of suicide. For orientation, patient reportsno disorientation to time,no disorientation to date, andno disorientation to place. For speech/motor difficulties, patient reportsno speech difficulties,no difficulty expressing formulated concepts,no difficulty with fine manipulative tasks,no difficulty writing/copying,no slowed reaction time, anddoes not knock things over when trying to pick them up.Functional AbilityFor hearing, patient reportsno loss of hearing. For vision, patient reportsno vision problems. For activities of daily living, patient reportsable to bathe with limited or no assistance,able to contol urination and bowels,able to dress with limited or no assistance,able to feed self with limited or no assistance,able to get out of chair or bed with limited or no assistance,able to groom with limited or no assistance, andable to toilet with limited or no assistance. For instrumental activities of daily living, patient reportsable to do house work with limited or no assistance,able to grocery shop with limited or no assistance,able to manage medications with limited or no assistance,able to manage money with limited or no assistance,able to prepare meals with limited or no assistance, andable to use the phone with limited or no assistance. For falls risk assessment, patient reportsno fall since last visit. For home safety, patient reportsno unsafe ana hazzards,no unsafe stairs,no unsafe gas appliances,working smoke/co detectors,wears protective head gear for biking/high velocity,use of seatbelts,practicing 'safer sex',no vision or hearing loss while driving,no fire arms,has hand bars in the bathroom/shower, andgood lighting in the home. Generic HPI TemplateReported by Patient Medicare Gaurav Martel is a 68 year old F who presents to complete their Annual Wellness Visit. Patient has recently retired. Visit Type: Initial How would you rate your health? Good Have you been discharged from the hospital recently? NoHave you been to the emergency room or urgent care recently? NoDo you have any significant previous hospital stays, injuries, or treatment? No Home Safety:Is the tub or shower floor slippery and do you need support? NoDo you need some support when you get in and out of the tub or from the toilet? No however patient has installed sturdy grab bars in the showerDo you have any small rugs or runners that slide or bunch up when you push them with your foot? NoAre there papers, books, towels, shoes, magazines, boxes, blankets, or other objects on the floor? No The patient does not have a history of falls. Oral Health: every 6 monthsEye Health: every year (wears glasses)Motor Vehicle: Driving Do you wear a seatbelt when in a car? Yes Screening Tools:Were there any ADL or IADL deficiencies not linked to physical limitations? NoDuring the past 12 months, have you experienced confusion or memory loss that is happening more often or is getting worse? No Advance Directive: none on file KARLA OCHOA MD [address], [address], [facility] 11/15/2023 08:54:21 4 text/html HyperlipidemiaReported by PatientHPIFor type of hyperlipidemia, patient reportshypercholesterolemia . For duration, patient reportschronic. For control, patient reportsnot at goal. For compliance, patient reportsdoes not exercisebut reportscompliant with diet.Pt is currently walking daily and is hiking. Eugenia Martel is a 69 year old F who presented to the clinic for follow-up on her chronic conditions. Pt has no complaints at this time. Pt mentions that she visited her old job this afternoon and got very anxious more than the expected. HR and BP are elevated more than patient's normal today. KARLA OCHOA MD [address], [address], [facility] 02/25/2024 14:01:05 4 text/html ROS as noted in the HPI Eugenia Martel is a 69 year old F who presented to the clinic for follow-up on her HR and blood pressure. It was noted on last visit 02/25/2024 that vitals were not patient's usual. Pt mentioned at the time she went to her old work which did cause some anxiety. KARLA OCHOA MD [address], [address], [facility] 03/03/2024 11:18:35 4 text/html ROS as noted in the HPI Eugenia Martel is a 69 year old F who presented to the clinic for follow-up on her blood pressure. Pt does mentions she has a lot anxiety coming to the doctor's office however BP in the past were at goal. Pt was advised to get home BP and to check her BP at home. Here for follow-up today to review home BP. Home BP at home on average from 130-135/80-86. KARLA OCHOA MD [address], [address], [facility] 06/04/2024 09:11:40 OBGyn Episode No OBEpisode recorded.
--- OUTSIDE RECORDS SUMMARY | 2025-04-19 12:25 | XMS_ITS ---
Author Name [facility] Organization Unknown Care Team Organization Name Specialty Phone Email Start Date End Da te [facility] NULL Primary Care 07/23/2022 03/02/2024 [facility] NULL Primary Care 05/22/2022 03/02/2024
--- OUTSIDE RECORDS SUMMARY | 2025-04-19 12:25 | XMS_ITS | Clinical Summary ---
Author Organization [facility] Address [address] [place] [phone] Phone Care Team Providers Care In Service Education Teacher Name Role Phone Gypsy Vallejo MD Primary Care Provider Social History Tobacco Use Types Packs/Day Years Used Date Smoking Tobacco: Never Assessed Comments Unknown Sex and Gender Information Value Date Recorded Sex Assigned at Female 06/10/2024 4:50 PM EST Legal Sex Female 8:26 PM EST Gender Identity Female 06/10/2024 4:50 PM EST Sexual Orientation Straight 06/10/2024 4: 50 PM EST Plan of Treatment Health Maintenance Due Date Last Done Comments Colorectal Cancer Screening: Colonoscopy 1955 DTaP,Tdap,and Td Vaccines (1 - Tdap) 01/20/1976 Pneumococcal Vaccine: 50+ Years (1 of 1 - PCV) 2007 Zoster Vaccines (1 of 2) 2007 Cholesterol Screening (Lipid Panel) 08/15/2019 Hepatitis C Screening 08/15/2019 Medicare Annual Wellness Visit 08/15/2019 Osteoporosis Screening (Bone Density Screening) 08/15/2019 Social Influencers of Health Screening 08/15/2019 Falls Risk Assessment 2022 Breast Cancer Screening 04/18/2024 04/18/2022 Hypertension/CHF/CAD Annual BMP Blood Test 06/06/2024 Depression Screening 07/15/2024 COVID-19 Vaccine ( season) 2025 04/14/2021, 07/27/2020, 07/06/2020 Influenza Vaccine (#1) 2025 , 04/28/2018, 04/28/2017, Additional history exists RSV Immunization Adult Patients (1 - 1-dose 75+ series) 01/20/2032 HIB Vaccines Aged Out No longer eligi ble based on patient's age to complete this topic HPV Vaccines Aged Out No longer eligi ble based on patient's age to complete this topic Hepatitis A Vaccines Aged Out No long er eligible based on patient's age to complete this topic Hepatitis B Vaccines Aged Out No long er eligible based on patient's age to complete this topic IPV Vaccines Aged Out No longer eligi ble based on patient's age to complete this topic MMR Vaccines Aged Out No longer eligi ble based on patient's age to complete this topic Meningococcal ACWY Vaccine Aged Out N o longer eligible based on patient's age to complete this topic Meningococcal B Vaccine Aged Out No l onger eligible based on patient's age to complete this topic RSV Immunization Patients Under 20 months Aged Out No longer eligible based on patient's age to complete this topic Varicella Vaccines Aged Out No longer eligible based on patient's age to complete this topic Insurance [employer]VANT[employer] Care Teams In Service Education Teacher Relationship Specialty Start Date End Date Gypsy Vallejo MD [address] [address] PCP - General Internal Medicine 06/10/24
[2025-04-19 13:13] VITALS: BP 158/90
== END 2025-04-19 11:45 | disposition home or self-care (01) ==
LOC: HO.HMCSH 10:30
PROVIDERS: PCP Physician Assistant Medical; Visit Provider Physician Assistant Medical
DX: I10 Essential (primary) hypertension (principal); E78.00 Pure hypercholesterolemia, unspecified; E78.5 Hyperlipidemia, unspecified; E07.9 Disorder of thyroid, unspecified; R01.1 Cardiac murmur, unspecified; E66.811 Obesity, class 1; Z68.31 Body mass index [BMI] 31.0-31.9, adult; Z00.00 Encounter for general adult medical examination without abnormal findings

== ENCOUNTER → 2025-04-19 10:30 | Outpatient (BNVA) | payer MEDICARE, SELFPAY | PROVIDERS: PCP Physician Assistant Medical; Visit Provider Physician Assistant Medical | DX: I10 Essential (primary) hypertension (principal); E78.00 Pure hypercholesterolemia, unspecified; R01.1 Cardiac murmur, unspecified; E66.811 Obesity, class 1; Z68.31 Body mass index [BMI] 31.0-31.9, adult | CPT/HCPCS: 96127; 99202 ==

== ENCOUNTER 2025-04-23 06:12 | Outpatient (REF) | payer MEDICARE, SELFPAY ==
[2025-04-23 10:06] LABS: MANUAL DIFF FLAG NO
[2025-04-23 10:19] LABS: Hematocrit 46.2 % (37.0-47.0); Hemoglobin 15.1 g/dl (12.0-16.0); Imm Gran Abs Auto 0.04 X10*3/uL (0.00-0.03); Imm Gran Pct Auto 0.6 % (0.0-0.4); Lymphocytes Absolute Auto 2.2 X10*3/uL (1.2-4.9); Mean Corpuscular HGB Conc 32.7 g/dl (31.0-35.0); Mean Corpuscular Hemoglobin 31.3 pg (27.0-33.0); Mean Corpuscular Volume 95.7 fL (80.0-98.0); NRBC Abs Auto 0.000 X10*3/uL (0.0-0.012); NRBC Pct Auto 0.0 /100WBC (0.0-0.2); Platelet Count 242 X10*3/uL (160-400); Red Blood Count 4.83 X10*6/uL (4.20-5.50); White Blood Count 6.5 X10*3/uL (4.8-10.8)
[2025-04-23 10:44] LABS: Alanine Aminotransferase 28 U/L (0-31); Albumin Level 4.5 g/dL (3.5-5.0); Alkaline Phosphatase 85 U/L (39-117); Anion Gap 12 (12-20); Aspartate Amino Transferase 31 U/L (5-31); Blood Urea Nitrogen 17 mg/dL (9-16); Calcium 9.6 mg/dL (8.4-10.2); Carbon Dioxide 28 mmol/L (22-29); Chloride 105 mmol/L (96-108); Cholesterol 278 mg/dL (<200); Estimated Glomerular Filt Rate > 60; HDL Cholesterol 51 mg/dL (>40); Magnesium 2.2 mg/dL (1.6-2.6); Potassium 4.4 mmol/L (3.3-5.1); Sodium 141 mmol/L (135-145); Total Protein 7.3 g/dL (6.5-8.0); Triglycerides 127 mg/dL (<150)
[2025-04-23 11:03] LABS: Folate 9.5 ng/mL (> or = 4.0); Vitamin B12 313 pg/mL (200-900)
[2025-04-23 11:10] LABS: Appearance Urine Turbid; Glucose Urine UA Negative (Negative); PH 5.0 (5.0-9.0); Specific Gravity - Urine 1.025 (1.005-1.025)
[2025-04-23 12:25] LABS: Free T4 (Free Thyroxine) 0.91 ng/dL (0.71-1.85)
== END 2025-04-23 06:13 | disposition home or self-care (01) ==
LOC: HO.HMGCLDS 06:12
PROVIDERS: PCP Physician Assistant Medical; Visit Provider Physician Assistant Medical
DX: Z00.00 Encounter for general adult medical examination without abnormal findings (principal); Z13.1 Encounter for screening for diabetes mellitus; Z13.6 Encounter for screening for cardiovascular disorders; E07.9 Disorder of thyroid, unspecified
CPT/HCPCS: 36415; 80053; 80061; 80076; 81003; 82248; 82306; 82607; 82746; 83036; 83735; 84439; 84443; 84481; 85025; 86140

== ENCOUNTER 2025-04-29 07:27 | Outpatient (AMB) | payer MEDICARE, SELFPAY ==
--- NOTE | 2025-04-29 07:29 | MHC.OFFVIS ---
Vital Signs 04/29/25 07:33 Height 5 ft 5.35 in Weight 187 lb 6.287 oz BMI 30.8 BP 132/88 Blood Pressure Location Rt brachial Position Sitting Pulse 84 Pulse Source Pulse Oximeter Pulse Oximetry (%) 99 Oxygen Delivery Method Room Air Intake Visit Reasons: Disorder of thyroid, unspecified Intake Note: New patient internally referred by PCP for Thyroid disease. Social Services Required: No Accompanied by: Self / Same As Patient Allergies Tetanus Vaccines and Toxoid Adverse Reaction (Mild, Verified 04/29/25 07:33) Swelling Medication List - Last Reconciled 04/29/25 by Mony Malik MD lisinopril 10 mg PO DAILY tirzepatide (weight loss) (Zepbound) 2.5 mg (0.5 mL) subcut QWEEK HPI Comments Details: 70-year-old female coming in today for initial evaluation of subclinical hypothyroidism. Chart review shows labs from December 05 showed TSH of 5.35 with normal free T4 1.05, was started on levothyroxine 25 mcg daily, labs repeated January 2024 TSH 1.86, free T4 1.15, patient reports but I dont have any records that despite these labs levothyroxine was increased to 50 mcg daily, however patient was anxious, tremulous. Patient then decreased it back to 25 mcg , then stopped it summer. apparently no labs done after. now most recent blood work 04/23/2025 with TSH elevated at 9.04, free T4 normal at 0.91, free T3 normal at 3.3. has not been on levothyroxine recently. Patient currently denies heat or cold intolerance, diarrhea or constipation, hair loss, palpitation, anxiety, weight changes, mood changes, low energy, changes in appearance of eyes or vision changes, tremors, increased diaphoresis or dry skin. ? Patient denies any difficulty swallowing, pain on swallowing or voice changes or difficulty breathing. Patient denies any history of childhood neck radiation. Denies having ever used lithium, amiodarone or biotin supplements. Patient denies any family history of thyroid cancer. Son has hypothyroidism. Physical exam General: sitting comfortably in no acute distress HEENT: normocephalic/atraumatic, Neck: supple, palpable left-sided nodule Cardiac: normal heart sounds Pulm: normal breath sounds B/L, no added breath sounds Laboratory Tests 0501/23/24 04/23/25 06:15 13:13 06:34 TSH 5.35 H 1.86 9.04 H Free T4 1.05 1.15 0.91 Free T3 3.3 [facility] Medical History (Updated 04/29/25 @ 08:20 by Mony Malik MD) Left thyroid nodule Subclinical hypothyroidism Preventative health care Hypertension Heart murmur Pure hypercholesterolemia, unspecified Hyperlipidemia Class 1 obesity with body mass index (BMI) of 31.0 to 31.9 in adult Thyroid disease Surgical History Hx of total hysterectomy History of left knee replacement Family History Father CHF (congestive heart failure) Mother Glaucoma Alzheimer dementia Social History Housing: House Alcohol intake: current Alcohol intake frequency: does not drink Patient Tobacco Use Status: Current everyday Tobacco user Tobacco use type: Cigarette service: No Current occupational status: retired Cognitive needs: No Hearing needs: No Vision needs: Yes (rx glasses) Physical Exam Vital Signs: Last Vital Signs Pulse 84 04/29/25 07:33 BP 132/88 04/29/25 07:33 Pulse Ox 99 04/29/25 07:33 Oxygen Delivery Method Room Air 04/29/25 07:33 BMI result Body Mass Index 30.8 Assessment & Plan Assessment & Plan (1) Subclinical hypothyroidism: Code(s): E03.8 - Other specified hypothyroidism Category: Medical Plan: 70-year-old female coming in today for initial evaluation of subclinical hypothyroidism. Last summer in 2023 blood work showed a mild elevation in TSH with normal free T4 and she was started on levothyroxine 25 mcg daily which was then uptitrated to 50 mcg daily, however resulted in patient having a hyperthyroid picture. She then stopped the medication and felt much improvement in her symptoms. Most recent blood work 04/23/2025 with TSH elevated at 9.04, free T4 normal at 0.91, free T3 normal at 3.3. has not been on levothyroxine recently. This is consistent with subclinical hypothyroidism. Given TSH is less than 10 in patient does not have any symptoms, at this time she does not meet criteria for treatment. We will continue to monitor her labs. Plan: -ordered TSH, free T4 to be done prior to next follow up in 4-5 months (2) Left thyroid nodule: Code(s): E04.1 - Nontoxic single thyroid nodule Category: Medical Plan: Patient does not have any family history of thyroid cancer, no personal history of head or neck radiation. On exam I do feel a left-sided thyroid nodule. We will obtain ultrasound of the thyroid. This is already ordered by her primary care provider. Plan: -follow up on the results ultrasound of the thyroid Plan I spent 45 minutes in reviewing the record, seeing the patient and documenting in the medical record. Orders: Orders Thyroid Stimulating Hormone 08/16/25 E03.8 - Other specified hypothyroidism Free T4 (Free Thyroxine) 08/16/25 E03.8 - Other specified hypothyroidism Patient Instructions: Do ultrasound of the thyroid, your primary care already put in the order for this, someone should be calling you to schedule this, if you have not heard from anyone over the next 2 weeks or so you can just call the [facility] or any other [place] facility where ultrasound is done and schedule a thyroid ultrasound Do thyroid blood work a week or two prior to your next follow up in August 2025, orders already in Follow up in August 2025 to discuss results Coding Level of Care Code New Pt Level 4 (26095) Diagnoses Subclinical hypothyroidism E03.8 Left thyroid nodule E04.1 Time Spent (min) 45
--- OUTSIDE RECORDS SUMMARY | 2025-04-29 07:31 | XMS_ITS | Clinical Summary ---
Author Organization [facility] Address [address] [place] [phone] Phone Care Team Providers Care Huller Operator Name Role Phone Gypsy Vallejo MD Primary [...] Assessment 2022 Breast Cancer Screening 04/18/2024 04/18/2022 Depression Screening 07/15/2024 COVID-19 Vaccine ( season) [...] [employer] Care Teams Huller Operator Relationship Specialty Start Date End Date Gypsy Vallejo MD [address] [facility] [address] [place] [phone] PCP - General Internal Medicine 06/10/24
[2025-04-29 07:33] VITALS: BP 132/88; PULSE 84; O2SAT 99; BMI 30.8
== END 2025-04-29 08:14 | disposition home or self-care (01) ==
LOC: HO.ENCR 07:28
PROVIDERS: PCP Physician Assistant Medical; Visit Provider Student in an Organized Health Care Education/Training Program
DX: E03.8 Other specified hypothyroidism (principal); E04.1 Nontoxic single thyroid nodule
CPT/HCPCS: 99204

== ENCOUNTER → 2025-04-29 07:27 | Outpatient (BNVA) | payer MEDICARE, SELFPAY | PROVIDERS: PCP Physician Assistant Medical; Visit Provider Student in an Organized Health Care Education/Training Program | DX: E03.8 Other specified hypothyroidism (principal); E04.1 Nontoxic single thyroid nodule; Z72.0 Tobacco use | CPT/HCPCS: 99202 ==

== ENCOUNTER → 2025-05-21 07:56 | Outpatient (REF) | payer MEDICARE, SELFPAY ==
--- OUTSIDE RECORDS SUMMARY | 2025-05-21 07:59 | XMS_ITS | Clinical Summary ---
Author Organization [facility] Address [address] [place] [phone] Phone Care Team Providers Care Drum Handler Name Role Phone Gypsy Vallejo MD Primary [...] [employer] Care Teams Drum Handler Relationship Specialty Start Date End Date Gypsy Vallejo MD [address] [facility] [address] [place] [phone] PCP - General Internal Medicine 06/10/24
--- OUTSIDE RECORDS SUMMARY | 2025-05-21 07:59 | XMS_ITS | Data Portability ---
Author Organization [facility], Main Office Address [address] [facility] [address] [place] [address] Care Team Providers Care Dye Tub Tender Name Role Phone МАРИНА RODRIGUEZ OTHER AMIRA MEYERS OTHER FRANK SAUNDERS Cardiac Care Nurse KARLA OCHOA Primary Care Provider Assessment No assessment recorded. Plan of Treatment Reminders Order Date Submit Date Provider Last Modified By Organization Details Last Modified Time Details Appointments None recorde d. Lab TSH + free T4, serum [email or web address] [place] [address] Lab, [place], [address], 09:08:42 BMP, serum or plasma [email or web address] [place] [address] Lab, [place], [address], 09:08:42 TSH, ultra-s ensitiv e, serum 2023 024 [facility] (Centralized Electronic Ordering - All Locations), Patient Can Go To The Location Of Their Choice, 08:42:48 lipid panel, serum 2023 024 [facility] (Centralized Electronic Ordering - All Locations), Patient Can Go To The Location Of Their Choice, [address] 11:07:29 BMP, serum or plasma 2023 024 [facility], [address], [place], [address], 4 08:42:48 CBC w/ auto diff 2023 024 [facility], [address], [place], [address], 4 11:14:03 TSH, serum or plasma 2021 022 [facility], [address], [address], [place], [address], 2 10:19:54 T4, free, serum 2021 022 [facility], [address], [address], [place], [address], 2 10:18:20 lipid panel, serum 2021 022 [facility], [address], [address], [place], [address], 2 08:32:14 ALT (alanin e aminotr ansfera se), serum or plasma 2021 022 [facility], [address], [address], [place], [address], 2 08:32:18 Referral gastroe nterolo gist referra l 2021 022 [email or web address] Not available 3 11:30:24 Procedures colonos copy screeni ng (PROC) 2021 022 [email or web address] Not available 3 13:26:41 Surgeries None recorde d. Imaging US, retrope ritoneu m, complet e - kidney and bladder [email or web address] [place] [address] (Central Scheduling Radiology), [address] [place] [address], [address], 11:57:53 bone density 2023 024 [email or web address] Not [...] By Organization Details Last Modified Time 03/30/2022 [id number] well visit, over 65: care instructions [email or web address] Not available 03/30/2022 15:49:34 11/15/2023 [id number] insomnia: care instructions Not available 11/15/2023 08:42:39 well visit, over 65: care instructions Not available 11/15/2023 08:42:39 preventing falls: care instructions Not available 11/15/2023 08:42:38 Quitting Tobacco: Care Instructions Not available 11/15/2023 08:53:34 02/25/2024 [id number] Quitting Tobacco: Care Instructions Not available 02/25/2024 14:00:50 insomnia: care instructions Not available 02/25/2024 14:00:49 06/04/2024 [id number] high blood pressure: care instructions Not available 06/04/2024 09:08:42 learning about high blood pressure Not available 06/04/2024 09:08:42 Reason for Referral Cardiac Care Nurse Referral for Screening for malignant neoplasm of colon Referring Physician: Isatu Velazquez, Family Medicine, Encounter Date: 03/30/2022 Results Created Date Observation Date Name Description Value Unit Range Abnormal Flag Note LastModifiedBy Organization Detail LastModifiedTime 04/10/20 22 04/10/2022 LIPID PROFI LE comments [facility], a [facility] [address] [place] [address] Medic al Direc tor - Allis on Kwaku kendall MD Not Available [facility] [address] [place] [address], [address], 04/10/2022 08:32:14 04/10/20 22 04/10/2022 LIPID PROFI LE cholesterol 238 mg/dL 0-200 high Not Available [facility] [address] [place] [address], [address], 04/10/2022 08:32:14 04/10/20 22 04/10/2022 LIPID PROFI LE triglyceride s 87 mg/dL 0-150 Not Available [facility] [address] [place] [address], [address], 04/10/2022 08:32:14 04/10/20 22 04/10/2022 LIPID PROFI LE HDL cholesterol 54 mg/dL >40 Not Available [facility] [address] [place] [address], [address], 04/10/2022 08:32:14 04/10/20 22 04/10/2022 LIPID PROFI LE LDL calculated 167 mg/dL 0-100 high Not Available [facility] [address] [place] [address], [address], 04/10/2022 08:32:14 04/10/20 22 04/10/2022 LIPID PROFI LE TC-HDLC ratio 4.4 mg/dL 0-4.4 Not Available [facility] [address] [place] [address], [address], 04/10/2022 08:32:14 04/10/20 22 04/10/2022 SGPT comments [facility], a [facility] of [facility] [address] [facility] [place], [place] [address] Medic al Direc tor - Allis on Kwaku kendall MD Not Available [facility] [address] [place] [address], [address], 04/10/2022 08:32:18 04/10/20 22 04/10/2022 SGPT SGPT 28 U/L 10-60 Not Available [facility] [address] [place], [address], 04/10/2022 08:32:18 04/10/20 22 04/10/2022 FREE T4 comments [facility], shade membe r of [address] [place] [address] Medic al Direc tor - Allis on Kwaku kendall MD Not Available [facility] [address] [place], [address], 04/10/2022 10:18:20 04/10/20 22 04/10/2022 FREE T4 free T4 1.05 NG/dL 0.70-1 .80 Not Available [facility] [address] [place] [address], [address], 04/10/2022 10:18:20 04/10/20 22 04/10/2022 TSH comments [facility] shade trujillo membe r of [address] [place] [address] Medic al Direc tor - Allis on Kwaku kendall MD Not Available [facility] [address] [place] [address], [address], 04/10/2022 10:19:53 04/10/20 22 04/10/2022 TSH TSH 7.73 uIU/m L 0.40-4 .00 high Not Available [facility] [address] [place] [address], [address], 04/10/2022 10:19:53 04/18/20 22 04/18/2022 MAMMO , scree simona, bilat eral No observ ation record ed. [email or web address] [facility] Diagnosit Imaging Dept [address] [place], [address], 04/18/2022 11:21:25 06/25/20 24 06/25/2024 US retro perit mercado compl ete See Note [facility] , a member of [facility] t Name: EUGENIA MARTEL Date of : 1954 Reason for Exam: Hypert ension Exam Date: 2023 [id number] EST Report Status : Final Orderi ng [...] Edit Transc ribed Date: 2023 14:[address], [address], 06/26/2024 13:16:55 Result Notes None recorded. Problems Name Problem SNOMED Code Status Onset Date Resolution Date Notes Provider Name and Address Organization Details Recorded Time Fatigue 93673687 Completed 08/07/2017 Lynsey alexandra [facility] [place] 8 14:41:38 Heel pain 3827141 Completed 04/25/2016 Shannen alexandra [facility] [place] 6 15:49:02 Hypercho lesterol emia 71943487 Active Shannen alexandra [facility] 6 21:59:42 Acute pharyngi tis 889355901 Completed 08/07/2017 Lynsey alexandra, [facility] 8 14:41:42 Insomnia 618355489 Active Shannen alexandra [facility] 6 21:49:10 Single major depressi ve episode, mild Completed 11/15/2023 KARLA OCHOA MD [address] [address] 4 08:49:07 Screenin g for malignan t neoplasm of breast Completed 201008/07/2017 RECORDED 1 2:02PM BY ELVER TINOCO , OFFICE VISIT Lynsey alexandra, [facility] 8 14:41:17 Screenin g for malignan t neoplasm of colon Completed 201008/07/2017 RECORDED 1 2:02PM BY ELVER TINOCO , OFFICE VISIT Lynsey alexandra, [facility] 8 14:41:22 Tobacco dependen ce syndrome 79293251 Completed 201004/25/2016 RECORDED 1 2:19PM BY ELVER TINOCO , OFFICE VISIT Shannen alexandra [facility] 6 15:49:08 Low back pain 611569983 Active 2010 Lynsey alexandra [facility] 8 14:41:37 Adult health examinat ion Completed 201008/07/2017 IMPRESSIO N: PAP AND MAMMO UTD, WORK ON BACK PIAN SO CAN EXERCISE; RECORDED 1 7:49PM BY SHANNEN EASTON MD, OFFICE VISIT Lynsey Ramirez MA null, [facility] 8 14:41:20 Pure hypercho lesterol emia 417115059 Completed 201108/07/2017 Shannen guzman null, [facility] 8 15:05:17 Acquired hypothyr oidism 788988046 Active 2021 Isatu Juan son null, [facility] 2 07:33:55 Ex-smoke r 4261499 Completed 202311/15/2023 4 cigs a day, loss the a family member KARLA OCHOA MD [address], [place], [address], [facility] 4 08:48:49 Nicotine dependen ce 14396088 Active 2023 KARLA OCHOA MD [address], [place], [address], [facility] 4 08:49:01 Major depressi on in remissio n 53548928 Active 2023 KARLA OCHOA MD [address], [place], [address], [facility] 4 08:49:15 Problem Notes None recorded. Procedures Surgical History Date Name Laterality Status Provider Name and Address Organization Details Recorded Time 11/10/19 23 Date of Last Colonoscopy completed Kerry Villarreal MA [facility] 11/15/2023 08:21:26 11/10/19 23 Colonoscopy completed Ying Zhong [facility] 11/09/2022 09:11:41 04/18/20 22 Most Recent Mammogram completed Martha Aly [facility] 04/18/2022 11:21:18 04/18/20 22 Mammogram both breasts completed Martha Aly [facility] 04/18/2022 11:21:08 09/13/19 18 hysterectomy completed Kerry Villareral MA [facility] 08/11/2018 15:38:31 07/15/19 18 Hysterectomy completed Kerry Villarreal MA [facility] 03/30/2022 15:07:49 07/15/19 18 Joint Replacement completed Kerry Villarreal MA [facility] 03/30/2022 15:07:49 Arthroscopic Surgery completed Kerry Villarreal MA [facility] 03/30/2022 15:07:49 Imaging Results None recorded. Procedure Notes None recorded. Medical Equipment None Reported. Allergies Allergen ID Allergen Name Allergen Category Reaction Reaction Severity Criticality Documentation Date Start Date Code Code System Note Provider Name and Address Organization Details Recorded Time 3777 Vaccine product containin g only Clostridi um tetani antigen (medicina l product) medicatio n Not available Not available Not available 01/26/20142010 89968 2002 SNOMED Lynsey Bigby JAJA ibrahima [facility] 8 14:40:24 Medications Name Sig Start Date [...] Updated DateTime 4 165.1 cm 33.1 kg/m2 20719.8 8 g 98 % 98 % 82 /min 98.3 [degF] 127/75 mm[Hg] Kerry Villarreal MA [facility] 4 08:18:37 Date Recorded Body height Body mass index (BMI) Body weight Body temperature Oxygen saturation Oxygen saturation in Arterial blood by Pulse oximetry Heart rate Systolic And Diastolic Provider Name and Address Organization Details Last Updated DateTime 4 165.1 cm 31.2 kg/m2 25681.5 7 g 97.6 [degF] 99 % 99 % 110 /min 138/83 mm[Hg] Kerry Villarreal MA [facility] 4 13:35:04 Date Recorded Body height Body mass index (BMI) Body weight Oxygen saturation Oxygen saturation in Arterial blood by Pulse oximetry Heart rate Body temperature Systolic And Diastolic Provider Name and Address Organization Details Last Updated DateTime 4 165.1 cm 31.5 kg/m2 67252.3 6 g 98 % 98 % 94 /min 97.7 [degF] 132/81 mm[Hg] Kerry Villarreal MA [facility] 4 11:05:05 Date Recorded Body height Body mass index (BMI) Body weight Oxygen saturation Oxygen saturation in Arterial blood by Pulse oximetry Heart rate Body temperature Systolic And Diastolic Provider Name and Address Organization Details Last Updated DateTime 2 165.1 cm 31 kg/m2 66738.2 8 g 98 % 98 % 85 /min 98.06 [degF] 122/79 mm[Hg] Kerry Villarreal MA [facility] 2 15:14:21 Date Recorded Systolic And Diastolic Provider Name and Address Organization Details Last Updated DateTime 06/04/2024 120/64 mm[Hg] KARLA OCHOA MD [address], [place], [address], [facility] 06/04/2024 09:03:17 Date Recorded Body height Body mass index (BMI) Body weight Heart rate Oxygen saturation Oxygen saturation in Arterial blood by Pulse oximetry Body temperature Systolic And Diastolic Provider Name and Address Organization Details Last Updated DateTime 4 165.1 cm 31.3 kg/m2 78520.3 7 g 88 /min 99 % 99 % 98.2 [degF] 151/91 mm[Hg] Eliana Ley MA [facility] 08:50:27 Social History Question Answer Notes LastModified by Organizat ion Details LastModified Time Tobacco Smoking Status Current Every Day Smoker JAJA Quintana [facility] 11/15/2023 08:20:25 Is Blood Transfusion Acceptable In An Emergency? Yes [email or web address] Information not available 04/20/2015 What Is Your Level Of Caffeine Consumption? Moderate [email or web address] Information not available 03/12/2014 How Much Tobacco Do You Chew? None Information not available 03/30/2022 What Type Of Diet Are You Following? REGULAR [email or web address] Information not available 03/12/2014 When Did You Quit Smoking? 6-10yearssi ncelastciga rette [email or web address] Information not available 03/30/2022 Are There Any Guns Present In Your Home? No [email or web address] Information not available 03/30/2022 Live Alone Or With Others? With Others [email or web address] Information not available 03/30/2022 Do You Take Precautions To Prevent Distracted Driving? Yes [email or web address] Information not available 04/20/2015 How Often Do You Need To Have Someone Help You When You Read Instructions, Pamphlets, Or Other Written Material From Your Doctor Or Pharmacy? Never Information not available 03/30/2022 Have You Served In The ? No [email or web address] Information not available 04/25/2016 *AWV ONLY* Are You Presently Prescribed Opioid Medication By PCP Or Specialist? If YES -Provider Assess The Benefit For Other, Non-opioid Pain Therapies Instead, Even If The Patient Does Not Have OUD But Is Possibly At Risk. No [email or web address] Information not available 11/15/2023 What Was The Date Of Your Most Recent Tobacco Screening? 03/30/2020 [email or web address] Information not available 11/15/2023 How Many Children Do You Have? 3 [email or web address] Information not available 03/12/2014 What Is Your Current Pack Years? 10packyears [email or web address] Information not available 03/30/2022 What Is Your Relationship Status? [email or web address] Information not available 03/30/2022 Do You Use Your Seat Belt Or Car Seat Routinely? Yes [email or web address] Information not available 03/30/2022 Seat Belts Used Routinely Yes [email or web address] Information not available 03/30/2022 Are You Sexually Active? No Information not available 03/30/2022 Smoke Alarm In Home Yes [email or web address] Information not available 03/30/2022 Do You Have Smoke And Carbon Monoxide Detectors In Your Home? Yes [email or web address] Information not available 03/30/2022 At What Age Did You Start Smoking Tobacco? 17 [email or web address] Information not available 03/30/2022 Are You Passively Exposed To Smoke? No [email or web address] Information not available 08/07/2017 How Much Tobacco Do You Smoke? No 4 Cigarrettes A Day Information not available 11/15/2023 General Stress Level Low [email or web address] Information not available 11/15/2023 Do You Use Sunscreen Routinely? Yes [email or web address] Information not available 03/12/2014 How Many Years Have You Smoked Tobacco? 15 [email or web address] Information not available 03/30/2022 Sex: Unknown Functional Status Question Answer Note LastModified by Organizat ion Details LastModified Time What is your level of alcohol consumption? Occasional [email or web address] Information not available 03/12/2014 Do you or have you ever used smokeless tobacco? Never used smokeless tobacco [email or web address] Information not available 03/30/2022 Are you currently employed? Yes Information not available 03/12/2014 Are you able to walk independently without assistance or assistive devices? YESWOREST [email or web address] Information not available 03/30/2022 Are you able to care for yourself independently? 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 Moderate [email or web address] Information not available 03/30/2022 Mental Status None recorded. Family History Relationship Description Onset Age of this Age Resolved Age Notes LastModified by Organization Details LastModified Time Mother Dementia [email or web address] Not availab le 04/20/2015 14:41:02 Brother Parkinson's disease [email or web address] Not available 2021 14:52:49 Notes:No breast or colon can cer Medical History Condition Response Coronary Artery Disease N Other N Gout N Kidney Stones N Blood Diseases N Hyperthyroidism N Breast Cancer N mrsa exposure N Hypothyroidism N Depression N COPD N Lung Disease N Developmental or Behavioral Disorders N Defects or Inherited Disease N Breast Problem N Anesthesia Complications N Headaches/Migraines N Varicose Veins N Anxiety Disorder N Muscle, Joint, or Bone Problems Y Obesity N Vision or Eye Problems Y Arthritis N Head Injury/Concussion N Infertility N Polyps N Mental Disorder N Congenital Anomalies N Acid Reflux (GERD) N Cancer N Stroke N ADHD N Endometriosis N High Cholesterol N Liver Disease N Headaches N Fibromyalgia N Kidney Disease N Heart Problems N Ear or Hearing Problems N Hospitalizations N Thyroid Problems N GI Problems N Developmental Delay N Acne N Eating Disorder N Skin Problems N Anemia N Constipation N Bladder Problems N Mental Illness N Diabetes N Ovarian Cancer N Bedwetting N Blood Transfusions N Heart Problems/Murmur N Seizures/Epilepsy N Tuberculosis N AIDS/HIV N Congestive Heart Failure (CHF) N Eczema N Abuse/Domestic Violence N Diverticulitis N Asthma N Allergies N Reflux/GERD N [...] virus, quadrivalent, preservative 6 completed JAJA Quintana, [facility] 04/25/2016 15:25:20 Influenza, split virus, quadrivalent, preservative 7 completed JAJA Quintana [facility] 08/07/2017 14:54:01 Influenza, split virus, quadrivalent, preservative 8 completed JAJA Quintana [facility] 08/11/2018 15:34:41 COVID-19, mRNA, LNP-S, PF, 30 mcg/0.3 mL dose 1 completed JAJA Quintana [facility] 03/30/2022 15:15:07 COVID-19, mRNA, LNP-S, PF, 30 mcg/0.3 mL dose 1 mahesh Villarreal, [place] null, [facility] 03/30/2022 15:15:07 COVID-19, mRNA, LNP-S, PF, 30 mcg/0.3 mL dose 0 completed JAJA Quintana, [facility] 03/30/2022 15:15:07 Influenza, high-dose, trivalent, PF 5 completed JAJA Quintana, [facility] 03/30/2022 15:15:07 Influenza, adjuvanted, trivalent, PF 4 completed JAJA Presley, [facility] 06/04/2024 08:50:43 Past Encounters Encounter ID Performer Location Encounter Start Date Encounter Closed Date Diagnosis/Indication Diagnosis SNOMED-CT Code Diagnosis ICD10 Code Diagnosis IMO Codes Diagnosis Note [id number] [facility] erc [address] [place] [address] [address] [place] [address] 07/13/2011 00:00:00 [id number] Shannen gill MD Main Office [address] [facility] [address] [place] [address] 03/12/2014 12:44:04 03/12/2014 14:04:15 Adult health examination 593891824 utd on pap amnd colonoscpy , will setup mammogram, is overdue Pure hypercholesterolemia 495028919 Fatigue 34389395 check sugarfatig ue Heel pain 4934090 right heel, no plantar fasciatis or achilles involvemen t, pt to use good shoes, most likely due to trauma form left knee pain and limping. [id number] TYRON Grigsby Main Office [address] [facility] [address] [place] [address] 06/14/2014 11:20:55 06/14/2014 12:01:43 Acute thoracic back pain 099263777 likely rhomboid strain. will get cxr since is a smoker and she is worried about lung cancer. she will call if worsening. Tobacco de pendence syndrome 66880206 [id number] Shannen gill MD Main Office [address] [facility] [address] [place] [address] 04/20/2015 14:07:03 04/20/2015 15:24:23 Adult health examination 249297412 Z00.00 utd on pap and colonoscop y, will setup mammogram, is overdue and she works at [employer] Hypercholesterolemia 136 79972 E78.0 check fasting Fatigue 62545639 R53.83 check sugar [id number] Jigar Marmolejo MD Main Office [address] [address] [place] [address] 06/07/2015 14:08:22 06/07/2015 15:13:08 Acute pharyngitis 005938542 J02.9 her throat pain is probably from PND from allergies. She will try OTC fluticason e and loratadine and will call her next week if her symptoms persist. [id number] Shannen gill MD Main Office [address] [address] [place] [address] 10/06/2015 10:38:03 10/06/2015 11:27:05 Insomnia 897689889 G47.00 treat as below, treating depression too Single austyn or depressive episode, mild 160846866 F32.0 start with .5mg return 6 weeks Fatigue 21320485 R53.83 check sugar Hypercholesterolemia 136 48641 E78.0 check lab she is due [id number] Shannen gill MD Main Office [address] [address] [place] [address] 11/14/2015 14:05:54 11/14/2015 15:02:43 Insomnia 165143018 G47.00 treat as below, treating depression too Single austyn or depressive episode, mild 826192599 F32.0 mood improving [id number] Shannen gill MD Main Office [address] [address] [place] [address] 04/25/2016 15:11:58 04/25/2016 16:05:21 Adult health examination 129460431 Z00.00 utd on pap and colonoscop y, will setup mammogram, is overdue and she works at [employer] mammogram Ex-smoker 7278057 Z87.[address] chest screening due to less than 20 years and less than a pack a day quit smoking Insomnia 223047994 G47.0 0 treat as below, treating depression too Single austyn or depressive episode, mild 847363311 F32.0 mood is good, continue meds [id number] Shannen gill MD Main Office [address] [facility] [address] [place] [address] 08/07/2017 14:15:57 08/07/2017 15:23:24 Screening for malignant neoplasm of breast 548793641 Z12.39 pt to set up appt Adult heal th examination 937399078 Z00.00 pap is utd, will get hysterecto my. soon, mammo is utd and colonoscop y too Hypercholesterolemia 136 72546 E78.2 check fasting, is on WW Uterine prolapse 7495484 5 N81.4 will be getting surgery by Dr Redmond, laproscopi c Urinary incontinence 165 367493 R32 will get bladder suspension . Single austyn or depressive episode, in full remission 627353928 F32.5 well controlled on celexa Skin lesion 20525157 L98 .9 mole on back that needs to be checked [id number] Shannen gill MD Main Office [address] [facility] [address] [facility] [place] [address] 12/04/2017 10:16:01 12/04/2017 10:57:30 Pruritic rash 38169049 L28.2 most likley contact dermatitis to wearing a new shirt or neck pillow with perfuse on it, also scabies as below, tx with prednisone , if nto better see adele Infestatio n by Sarcoptes scabiei dani hominis 313655138 B86 tx as instructed [id number] Shannen gill MD Main Office [address] [facility] [address] [place] [address] 02/10/2018 10:35:52 02/10/2018 11:15:02 Achilles tendinitis 09857061 M76.61 pt to ice, rest, wear sneakers, stretch, set up PT and if not better call for podiatry referral, med as below with food, stop if any GI upset Single austyn or depressive episode, mild 187002847 F32.0 pt stopped meds, feels her mood is good. [id number] Shannen gill MD Main Office [address] [facility] [address] [place] [address] 08/11/2018 15:20:07 08/11/2018 16:10:53 Adult health examination 823102240 Z00.00 pt will set up mammogram, is overdue, she colonoscop y utd, and no pap needed. Screening for malignant neoplasm of breast 773440432 Z12.39 pt to set up appt Hypercholesterolemia 136 88318 E78.2 check fasting, is on WW Fatigue 62710246 R53.83 check sugar Major depr ession in remission 61413549 F32.5 on celexa 10mg, works and tolerates it well [id number] Shannen gill MD Main Office [address] [facility] [address] [place] [address] 03/30/2022 14:52:10 03/30/2022 16:02:09 Adult health examination 283510615 Z00.00 Pt is in good general health. Social and family history reviewed. Immunizati ons reviewed, advised annual flu shot, can get at work, rec shingles vaccine. She is up to date oneye providers, due for dentist, mammogram up to date, colon up to date, Reviewed diet and exercise. Hypercholesterolemia 136 17271 E78.2 Acquired hypothyroidism 009357704 E03.9 Insomnia 231315544 G47.0 9 discussed sleep hygeine, use melatonin at night, do no stay in bed awake for more than 20 min, do alterative choice until sleep and then return to bed, pre worry , progressiv e relaxation , bed later, she is getting 6 hour but goes to bed early. Add exericise Major depr ession single episode, in partial remission [id number] F32.4 stable, no meds at this time Screening for malignant neoplasm of breast [id number] Z12.39 has appt in apr Screening for malignant neoplasm of colon [id number] Z12.11 pt to set up appt [id number] KARLA OCHOA MD Main Office [address] [facility] [address] [place] [address] 11/15/2023 08:05:18 11/15/2023 08:46:30 Adult health examination [id number] Z00.00 Health Maintenanc e FemaleA) Patient was [...] refusedTdA P: allergicZo ster: never had chicken zuyWEL26: due at 44VTJS87: due at 31NOG33:PC V15:COVID: 07/06/2020 , 07/27/2020, 04/14/2021 D) Routine blood work orderedE) Updated patient's history RTC in one year for annual exam or sooner if any acute complaints Acquired hypothyroidism 041130310 E03.9 - c/w levothyrox ine 50mcg- will check levels Hypercholesterolemia 136 62767 E78.2 Insomnia 245566676 G47.0 9 - currently under good control- counselled on sleep hygiene Fatigue 46226519 R53.83 Z00.00 Bone density finding 385 680010 M85.89 Nicotine dependence 5629 4008 F17.200 - pt started smoking again after approximat don 15 years of stopping- currently smoking 4 cigs a day- is thinking about quitting [id number] KARLA OCHOA MD Main Office [address] [facility] [address] [facility] [place], [place] [address] 02/25/2024 13:23:27 02/25/2024 13:52:51 Acquired hypothyroidism 921934568 E03.9 - c/w levothyrox ine 75mcg- recent levels were normal done on 01/2024 Hypercholesterolemia 136 08392 E78.2 - ASCVD score of 7.3%- need [...] levels.- Eat more fruits and veggies. Insomnia 885063818 G47.0 9 - currently under good control- counselled on sleep hygiene Nicotine dependence 5629 4008 F17.200 - pt started smoking again after approximat don 15 years of stopping- currently smoking 4 cigs a day- is thinking about quitting Elevated blood-pressure reading without diagnosis of hypertension 769774211 R03.0 - BP today is 138/83- pt is usually under very good control however had a very stressful visit prior to seeing MD today Tachycardia 2802005 R00. 0 - HR noted to be 110, similar on repeat- elevated HR due to tachycardi a- RTC in one week, if no improvemen t EKG- ED precaution s given [id number] KARLA OCHOA MD Main Office [address] [place] [address] 03/03/2024 10:40:41 03/03/2024 11:19:00 Elevated blood-pressure reading without diagnosis of hypertension 578957343 R03.0 - BP today is 132/81 improved from last time- pt is usually under very good control however had a very stressful visit prior to seeing today- pt was advised to get BP machine to check her blood pressure at home- RTC in May as pt will get BP machine in April Tachycardia 3032096 R00. 0 - resolved- HR today is 94 [id number] KARLA OCHOA MD Main Office [address] [place] [address] 06/04/2024 08:35:22 06/04/2024 09:08:41 Essential hypertension 51813705 I10 - oscillatin g between goal and [...] ve trouble with your vision. Acquired hypothyroidism 662297043 E03.9 - pt has stopped levothyrox ine [...] Sood Member ID Guarantor Name 11/26/2024 1 [employer] [facility] [employer] (MEDICARE REPLACEMEN T/ADVANTAG E - PPO) [id number] Eugenia Martel [id number] Eugenia Martel 02/25/2024 1 [employer] (POS) [id number] Eugenia Martel [id number] Eugenia Martel 02/25/2024 1 [facility] [id number] Eugenia Martel [id number] Eugenia Martel Notes Date Note Type Note Provider Name and Address Organization Details Recorded Time 2 text/html Medicare Annual Wellness VisitReported by Patient Generic HPI TemplateReported by Patient Physical age 68, 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 Mid racing. no DFA sleeps 6 hours 9-3. [facility] 04/02/2022 07:36:06 4 text/html Medicare Annual Wellness [...] none on file KARLA OCHOA MD [address], [phone], [facility] 11/15/2023 08:54:21 4 text/html HyperlipidemiaReported by PatientHPIFor [...] patient's normal today. KARLA OCHOA MD [address], [address], [facility] 02/25/2024 14:01:05 4 text/html ROS as noted [...] cause some anxiety. KARLA OCHOA MD [address], [address], [facility] 03/03/2024 11:18:35 4 text/html ROS as noted [...] average from 130-135/80-86. KARLA OCHOA MD [address], [address], [facility] 06/04/2024 09:11:40 OBGyn Episode No OBEpisode recorded.
--- NOTE | 2025-05-21 08:00 | CA_ITS ---
Transthoracic Echocardiogram Patient (Last, First, Middle): Eugenia Martel Marie Gender: Female Date of : 1955 Age: 70 Procedure Date: 05/21/2025 Procedure Type: Transthoracic Echocardiogram Location: OP Height: 165.1 cm Weight: 85.28 kg BSA: 1.93 m2 Heart Rate: bpm BP: 122 / 80 mmHg Slot Floor Attendant: ANDREAS Referring MD: Lynn Gimenez PA-C Head Cook: Velasquez Coleman MD Symptoms: R01.1 - Cardiac murmur, unspecified Study Quality: Good ECG Rhythm: Sinus Conclusions: - 1. Normal LV ejection fraction of 60 65% with mild LVH with impaired relaxation filling pattern 2. Normal cardiac valvular Dopplers 3. Normal RV systolic pressure 4. No gross pericardial effusion Findings Left Ventricle Normal left ventricular size and systolic function. There is mildly increased left ventricular wall thickness. The visually estimated ejection fraction is between 60-65%. Spectral Doppler is indicative of an impaired relaxation filling pattern. E/E prime ratio is between 8 and 15 consistent with indeterminate filling pressures. Right Ventricle Normal right ventricular cavity size and systolic function. Atria Both atria are normal in size. There is no evidence of interatrial shunt. Aortic Valve Normal aortic valve structure and function. There is no aortic valve stenosis. There is no aortic valve regurgitation. Mitral Valve Normal mitral valve structure and function. There is trace mitral valve regurgitation. There is no mitral valve stenosis. Pulmonic Valve The pulmonic valve is likely normal. Tricuspid Valve Normal tricuspid valve structure. There is trace tricuspid valve regurgitation. The right ventricular systolic pressure is normal. The right ventricular systolic pressure is 23 mmHg. Normal right atrial pressure. There is no evidence of pulmonary hypertension. Great Vessels All visible segments of the aorta are normal in size. The pulmonary artery was not well visualized. There is no dilatation of the ascending aorta measuring 3.30 cm. Venous The inferior vena cava is normal in size and collapses greater than 50% with inspiration. Pericardium/Pleural There is no evidence of pericardial effusion. Prior Study Comparison No prior study available for comparison. Measurements 2D Linear Measurements IVSd: 1.04 0.6-0.9/0.6-1.0 cm LVIDd: 4.32 3.9-5.3/4.2-5.9 cm LVIDd Index: 2.24 2.4-3.2/2.2-3.1 cm/m2 LVIDs: 2.57 2.0-3.6 cm LVPWd: 1.20 0.7-1.1 cm Ao Root: 3.10 2.1-3.5 cm LA Diam: 3.00 2.7-3.8/3.0-4.0 cm LAIDs Index: 1.55 1.5-2.3 cm/m2 LV Mass: 209.75 67-162/88-224 g LV Mass Index: 108.68 43-95/49-115 g/m2 LVOT Diam: 2.20 3.0+(-)1.3 cm 2D Systolic Function EF 4C: 61.60 >55% EF 2C: 68.00 >55% EF BiP: 64.50 >55% Mitral Valve MV Pk E: 0.58 MV PK A: 0.83 MV Decel Time: 208.00 E/A: 0.70 E'Lateral: 7.40 E'Medial: 4.57 E/E' Med: 12.70 E/E' Lat: 7.90 PHT: 61.00 MVA PHT: 3.61 Decel [place]: 2.80 Aortic Valve AoV Pk Kevin: 1.52 AoV Mn Kevin: 1.03 AoV VTI: 0.31 AoV Pk Grad: 9.00 Aov Mn Grad: 5.00 WILL Cont.VTI: 2.61 LVOT LVOT Pk Kevin: 0.95 LVOT Mn Kevin: 0.64 LVOT VTI: 0.21 LVOT Pk Grad: 4.00 LVOT Mn Grad: 2.00 LVOT Diam: 2.20 LVOT Area: 3.80 Diastolic Function MV Pk E: 0.58 MV Pk A: 0.83 E/A: 0.70 E'Medial: 4.57 E/E' Med: 12.70 E' Laterial: 7.40 E/E' Lat: 7.90 Right Ventricle TAPSE (mm): 23.00 TVS' Kevin: 12.00 Tricuspid Valve TR Pk Kevin: 2.24 TR Pk Grad: 20.00 RA Press: 3.00 RVSP: 23.00 Great Vessels Aorta Ao Root-2D: 3.10 2.0-3.7 cm Ao Asc: 3.30 2.1-3.4 cm Pulmonary Valve PV Pk Kevin: 1.20 Peak PV Grad: 6.00 Updated in Other Vendor System with Status of Final Velasquez Coleman MD electronically signed on 05/21/2025 3:04:42 PM with status of Final
== END ==
LOC: HO.CARD 07:56
PROVIDERS: PCP Physician Assistant Medical; Visit Provider Physician Assistant Medical
DX: R01.1 Cardiac murmur, unspecified (principal); I10 Essential (primary) hypertension; E78.5 Hyperlipidemia, unspecified; E78.00 Pure hypercholesterolemia, unspecified; E07.9 Disorder of thyroid, unspecified; E66.811 Obesity, class 1; Z68.31 Body mass index [BMI] 31.0-31.9, adult
CPT/HCPCS: 93306

== ENCOUNTER → 2025-05-21 08:00 | Outpatient (BNV) | payer MEDICARE, SELFPAY | PROVIDERS: PCP Physician Assistant Medical; Visit Provider Internal Medicine Cardiovascular Disease | DX: I51.7 Cardiomegaly (principal); I51.89 Other ill-defined heart diseases | CPT/HCPCS: 93306 ==

== ENCOUNTER 2025-05-24 14:17 | Outpatient (AMB) | payer MEDICARE, SELFPAY ==
[2025-05-24 14:11] VITALS: BP 116/69; PULSE 80; RESP 16; TEMP 36.6; O2SAT 99; BMI 30.6
--- NOTE | 2025-05-24 14:11 | MHC.PC.OV ---
Vital Signs 05/24/25 14:11 Height 5 ft 5.35 in Weight 186 lb BMI 30.6 BP 116/69 Blood Pressure Location Rt brachial Position Sitting Respiration 16 Pulse 80 Pulse Source Pulse Oximeter Temp 97.9 F Temp Source Temporal Artery Scan Pulse Oximetry (%) 99 Oxygen Delivery Method Room Air Intake Visit Reasons: 1 month follow up Playground Monitor Required: No Accompanied by: Self / Same As Patient Allergies Tetanus Vaccines and Toxoid Adverse Reaction (Mild, Verified 05/24/25 15:46) Swelling Medication List - Last Reconciled 05/24/25 by Lynn Gimenez PA-C amoxicillin 2,000 mg (4 x 500 mg) PO ONCE lisinopril 10 mg PO DAILY rosuvastatin (Crestor) 10 mg PO BEDTIME Tobacco use date assessed: 04/19/25 Dental Screening Dental Screen Date: 04/19/25 HPI 1 month follow up HPI Details The patient is a 70-year-old female presenting for a one-month follow-up for a blood pressure check. She was started on lisinopril 10 mg one month ago for elevated blood pressure, and her readings have since improved from the 140s/90s to the 120s/70s-80s. She reports an occasional dry cough and initial lightheadedness that has since resolved, but she does not wish to change the medication. The patient is also followed by cardiology for mild diastolic dysfunction and mild thickening of the left ventricle. Additionally, she has a history of elevated cholesterol levels. The patient reports a history of a left thyroid nodule and has a thyroid ultrasound scheduled for 06/15/2025. She was seen by an mechanical engineering director for a TSH of 9.04, free T4 of 0.91, and free T3 of 3.3, and it was decided to not be on thyroid medication. The patient requested a refill of amoxicillin 2 g for antibiotic prophylaxis prior to dental procedures due to prior surgeries. FORMERLY [facility], [facility] Medical History (Updated 05/24/25 @ 15:57 by Lynn Gimenez PA-C) Prophylactic antibiotic Mild concentric left ventricular hypertrophy (LVH) Diastolic dysfunction Left thyroid nodule Subclinical hypothyroidism Preventative health care Hypertension Heart murmur Pure hypercholesterolemia, unspecified Hyperlipidemia Class 1 obesity with body mass index (BMI) of 31.0 to 31.9 in adult Thyroid disease Surgical History Hx of total hysterectomy History of left knee replacement Family History Father CHF (congestive heart failure) Mother Glaucoma Alzheimer dementia Social History Housing: House Alcohol intake: current Alcohol intake frequency: does not drink Patient Tobacco Use Status: Current everyday Tobacco user Tobacco use type: Cigarette service: No Current occupational status: retired Cognitive needs: No Hearing needs: No Vision needs: Yes (rx glasses) Questionnaire PHQ-9 Over the last 2 weeks, how often have you been bothered by any of the following problems? 1. Little interest or pleasure in doing things: not at all 2. Feeling down, depressed, or hopeless: not at all 3. Trouble falling or staying asleep, or sleeping too much: not at all 4. Feeling tired or having little energy: not at all 5. Poor appetite or overeating: not at all 6. Feeling bad about yourself - or that you are a failure or have let yourself or your family down: not at all 7. Trouble concentrating on things, such as reading the newspaper or watching television: not at all 8. Moving or speaking so slowly that other people could have noticed. Or the opposite - being so fidgety or restless that you have been moving around a lot more than usual: not at all 9. Thoughts that you would be better off or of hurting yourself in some way: not at all Total score: 0 Depression Screening Interpretation: Negative Depression Screening Done: Yes 01002 - PHQ-9 Billing: Yes Source: Developed by Drs. Raza Shaver, Ginny Pacheco, Juan M Lei and colleagues, with an educational shoshana from [employer]. Thrive Questionnaire Date Thrive assessed: 04/19/25 I am a: Patient What is your living situation today?: I have a steady place to live Within the past 12 months, did the food you bought not last and you didn't have the money to get more?: Never true Within the past 12 months, did you worry whether your food would run out before you got money to buy more?: Never true Do you have trouble paying for medicines?: No Do you have trouble getting transportation to medical appointments?: No Do you have trouble paying your heating and electricity bill?: No Do you have trouble taking care of your child, family member or friend?: No Do you have trouble with day-to-day activities such as bathing, preparing meals, shopping, managing finances, etc.?: No Are you currently unemployed and looking for a job?: No Are you interested in more education?: No Please select the resources that you would like help with: None THRIVE Score: 0 AUDIT C Alcohol Use Questionnaire (AUDIT-C) 1. How often do you have a drink containing alcohol?: Never 3. How often do you have six or more drinks on one occasion?: Never Total Score: 0 Score Reviewed/Action Taken: No MARGARETH-7 AMB Questionnaire MARGARETH-7 Date MARGARETH - 7 assessed: 04/19/25 Feeling nervous, anxious, or on edge: 1 = Several days Not being able to stop or control worryin = Not at all Worrying too much about different things: 1 = Several days Trouble relaxin = Not at all Being so restless that it is hard to sit still: 0 = Not at all Becoming easily annoyed or irritable: 0 = Not at all Feeling afraid as if something awful might happen: 0 = Not at all Total MARGARETH-7 score (0-4 normal; 5-9 mild; 10-14 moderate; 15-21 severe): 2 Source: Developed by Drs. Raza Shaver, Ginny Pacheco, Juan M Lei and colleagues, with an educational shoshana from [employer]. MARGARETH-7 Assessment Billing MARGARETH-7 Assessment Tool: MARGARETH-7 Assessment 32695 Review of Systems Const Details: - General: Reports initial lightheadedness when starting medication, which has since resolved. - Cardiovascular: Denies chest pain. - Respiratory: Reports an occasional dry cough but denies shortness of breath. All systems reviewed & are unremarkable except as noted in HPI and below Physical exam (Primary Care) Vital Signs: Last Vital Signs Temp 97.9 F 05/24/25 14:11 Pulse 80 05/24/25 14:11 Resp 16 05/24/25 14:11 BP 116/69 05/24/25 14:11 Pulse Ox 99 05/24/25 14:11 Oxygen Delivery Method Room Air 05/24/25 14:11 Care Plan Goal for BP management: <140/90 at Goal BMI result Body Mass Index 30.6 BMI Assessment/Plan discussion: High BMI High, discussed plan: lifestyle, weight reduction, dietary, physical activity, alcohol moderation and other Tobacco/Smoking Status: Tobacco use Status Tobacco use date assessed 04/19/25 05/24/25 14:12 Patient Tobacco Use Status Current everyday Tobacco 05/24/25 14:12 Tobacco use type Cigarette 05/24/25 14:12 PHQ-9: PHQ-9 Score PHQ-9: Total score 0 05/24/25 15:47 Depression Screening Interpretation: Negative Thrive Assessment: Date of Thrive Assessment Date Thrive assessed 04/19/25 05/24/25 14:12 Const Other: Appearance: Alert. Oriented X3. No acute distress. Head: Normal external exam. Normocephalic. Atraumatic. Eyes: Pupils are equal, round, and reactive to light. Extraocular movements intact. Conjunctiva and sclera normal. Eyelids normal. Throat: Pharynx normal. Uvula midline. Moist mucous membranes. Neck: Normal inspection. Neck supple. Full range of motion. Cardiovascular: Normal heart rate and rhythm. Respiratory: No respiratory distress. Painless inspiration. Back: Full range of motion noted. Skin: Skin warm and dry. Normal skin color. Extremities: Extremities exhibit normal range of motion. Results Reviewed Results Reviewed: - Laboratory tests: TSH was 9.04, free T4 was 0.91, and free T3 was 3.3. Coding Level of Care Code Est Pt Level 4 (59854) Complex EM visit Add On G2211 Diagnoses Hypertension I10 Hyperlipidemia E78.5 Pure hypercholesterolemia, unspecified E78.00 Left thyroid nodule E04.1 Diastolic dysfunction I51.89 Prophylactic antibiotic Z79.2 Additional Codes MARGARETH-7 Assessment Billing - MARGARETH-7 Assessment Tool: MARGARETH-7 Assessment 89670 ([id number]) PHQ-9 - 14393 - PHQ-9 Billing: Yes ([id number]) Assessment & Plan Assessment & Plan (1) Hypertension: Code(s): I10 - Essential (primary) hypertension Category: Medical Plan: The patient's blood pressure is well controlled on lisinopril 10 mg, with current readings in the 120s/70-80s. Although she reports an occasional dry cough, she does not want to change the medication. Will continue the current regimen and follow up in three months. (2) Hyperlipidemia: Code(s): E78.5 - Hyperlipidemia, unspecified Category: Medical Plan: Due to elevated cholesterol levels, the patient will be started on rosuvastatin 10 mg to be taken at bedtime. The patient was counseled that she may experience muscle cramps and understands to advise of any side effects. (3) Pure hypercholesterolemia, unspecified: Code(s): E78.00 - Pure hypercholesterolemia, unspecified Category: Medical Plan: Due to elevated cholesterol levels, the patient will be started on rosuvastatin 10 mg to be taken at bedtime. The patient was counseled that she may experience muscle cramps and understands to advise of any side effects. (4) Left thyroid nodule: Code(s): E04.1 - Nontoxic single thyroid nodule Category: Medical Plan: The patient will undergo a thyroid ultrasound on 06/15/2025 for a known left thyroid nodule. Based on an endocrinology evaluation and her lab results (TSH 9.04, free T4 0.91, free T3 3.3), the patient will remain off thyroid medication at this time. The results of the upcoming ultrasound will be communicated to her. (5) Diastolic dysfunction: Code(s): I51.89 - Other ill-defined heart diseases Category: Medical Plan: The patient will continue to follow up with cardiology for mild diastolic dysfunction and mild thickening of the left ventricle. (6) Prophylactic antibiotic: Code(s): Z79.2 - FPC (current) use of antibiotics Category: Medical Plan: A refill for amoxicillin 2 g will be provided for the patient to take prior to any dental procedures as prophylaxis. Plan Plan Patient was informed and verbally consented to the use of an ambient scribe for clinic note documentation during this visit. 1. Hypertension The patient's blood pressure is well controlled on lisinopril 10 mg, with current readings in the 120s/70-80s. Although she reports an occasional dry cough, she does not want to change the medication. Will continue the current regimen and follow up in three months. 2. Hypercholesterolemia Due to elevated cholesterol levels, the patient will be started on rosuvastatin 10 mg to be taken at bedtime. The patient was counseled that she may experience muscle cramps and understands to advise of any side effects. 3. Left Thyroid Nodule And Subclinical Hypothyroidism The patient will undergo a thyroid ultrasound on 06/15/2025 for a known left thyroid nodule. Based on an endocrinology evaluation and her lab results (TSH 9.04, free T4 0.91, free T3 3.3), the patient will remain off thyroid medication at this time. The results of the upcoming ultrasound will be communicated to her. 4. Mild Diastolic Dysfunction And Mild Left Ventricular Thickening The patient will continue to follow up with cardiology for mild diastolic dysfunction and mild thickening of the left ventricle. 5. Prophylactic Antibiotic Therapy A refill for amoxicillin 2 g will be provided for the patient to take prior to any dental procedures as prophylaxis. I have reviewed the patient's blood pressure control, which has improved significantly on lisinopril 10 mg. We discussed the side effect of a mild, occasional dry cough, and she wishes to continue the medication at this time. For her elevated cholesterol, I have initiated rosuvastatin 10 mg at bedtime and counseled her on the risk of muscle cramps, advising her to notify us of any side effects. We discussed her thyroid status; she will remain off medication per endocrinology's previous recommendation and will proceed with a scheduled thyroid ultrasound for her known nodule. I provided a refill of amoxicillin for dental prophylaxis. The patient will follow up in three months, and we will call her with any pending results. Medications: New amoxicillin for dental procedures 2,000 mg (4 x 500 mg) PO ONCE 20 tabs 3RF rosuvastatin (Crestor) 10 mg PO BEDTIME 90 tabs 3RF E78.00 - Pure hypercholesterolemia, unspecified, E78.5 - Hyperlipidemia, unspecified Patient Instructions: - Continue taking lisinopril 10 mg once a day for your blood pressure. - Start taking Crestor (rosuvastatin) 10 mg at bedtime for your cholesterol. - Call the office if you experience any muscle cramps while taking Crestor. - We have sent a refill for amoxicillin 2 g. Take this medication before any dental procedures as prescribed. - Please ensure you attend your upcoming thyroid ultrasound appointment on 06/15/2025. - Continue to see your heart doctor (core laying machine operator) for your heart condition. - We will call you with your test results. - Please schedule a follow-up appointment in our office in three months.
--- OUTSIDE RECORDS SUMMARY | 2025-05-24 16:38 | XMS_ITS | Clinical Summary ---
Author Organization [facility] Address [address] [place] [phone] Phone Care Team Providers Care Electric Scoop Operator Name Role Phone Gypsy Vallejo MD [...] [employer] [employer] Care Teams Electric Scoop Operator Relationship Specialty Start Date End Date Gypsy Vallejo MD [address] [facility] [address] [place] [phone] PCP - General Internal Medicine 06/10/24
--- OUTSIDE RECORDS SUMMARY | 2025-05-24 16:38 | XMS_ITS | Data Portability ---
Author Organization [facility], Main Office Address [address] 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 Plan of Treatment Reminders Order Date Submit Date Provider Last Modified By Organization Details Last Modified Time Details Appointments None recorde d. Lab TSH + free T4, serum [email or web address] [place] [address] Lab, [place], [address], 09:08:42 BMP, serum or plasma [email or web address] [place] [address] Lab, [place], [address], 09:08:42 TSH, ultra-s ensitiv e, serum 2023 024 [facility] (Centralized Electronic Ordering - All Locations), Patient Can Go To The Location Of Their Choice, 08:42:48 lipid panel, serum 2023 024 [facility] (Centralized Electronic Ordering - All Locations), Patient Can Go To The Location Of Their Choice, [address] 11:07:29 BMP, serum or plasma 2023 024 [facility], [address], [place], [address], 4 08:42:48 CBC w/ auto diff 2023 024 [facility], [address], [place], [address], 4 11:14:03 TSH, serum or plasma 2021 022 [facility], [address], [place], [address], 2 10:19:54 T4, free, serum 2021 022 [facility], [address], [address], [place], [address], 2 10:18:20 lipid panel, serum 2021 022 [facility], [address], [address], [place], [address], 2 08:32:14 ALT (alanin e aminotr ansfera se), serum or plasma 2021 022 [facility], [address], [address], [place], [address], 2 08:32:18 Referral gastroe nterolo gist referra l 2021 022 [email or web address] Not available 3 11:30:24 Procedures colonos copy screeni ng (PROC) 2021 022 [email or web address] Not available 3 13:26:41 Surgeries None recorde d. Imaging US, retrope ritoneu m, complet e - kidney and bladder [email or web address] [place] [address] (Central Scheduling Radiology), [address] [place] [address], [address], 11:57:53 bone density 2023 024 [email or web address] Not [...] By Organization Details Last Modified Time 03/30/2022 [id number] well visit, over 65: care instructions [email or web address] Not available 03/30/2022 15:49:34 11/15/2023 [id number] insomnia: care instructions Not available 11/15/2023 08:42:39 well visit, over 65: care instructions Not available 11/15/2023 08:42:39 preventing falls: care instructions Not available 11/15/2023 08:42:38 Quitting Tobacco: Care Instructions Not available 11/15/2023 08:53:34 02/25/2024 [id number] Quitting Tobacco: Care Instructions Not available 02/25/2024 14:00:50 insomnia: care instructions Not available 02/25/2024 14:00:49 06/04/2024 [id number] high blood pressure: care instructions Not available 06/04/2024 09:08:42 learning about high blood pressure Not available 06/04/2024 09:08:42 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 [address] Medic al Direc tor - Allis on Kwaku kendall MD Not Available [facility] [address] [place] [address], [address], 04/10/2022 08:32:14 04/10/20 22 04/10/2022 LIPID PROFI LE cholesterol 238 mg/dL 0-200 high Not Available [facility] [address] [place] [address], [address], 04/10/2022 08:32:14 04/10/20 22 04/10/2022 LIPID PROFI LE triglyceride s 87 mg/dL 0-150 Not Available [facility] [address] [place] [address], [address], 04/10/2022 08:32:14 04/10/20 22 04/10/2022 LIPID PROFI LE HDL cholesterol 54 mg/dL >40 Not Available [facility] [address] [place] [address], [address], 04/10/2022 08:32:14 04/10/20 22 04/10/2022 LIPID PROFI LE LDL calculated 167 mg/dL 0-100 high Not Available [facility] [address] [place] [address], [address], 04/10/2022 08:32:14 04/10/20 22 04/10/2022 LIPID PROFI LE TC-HDLC ratio 4.4 mg/dL 0-4.4 Not Available [facility] [address] [place] [address], [address], 04/10/2022 08:32:14 04/10/20 22 04/10/2022 SGPT comments [facility], a [facility] of [facility] [address] [facility]. [place], [place] [address] Medic al Direc tor - Allis on Kwaku kendall MD Not Available [facility] [address] [place] [address], [address], 04/10/2022 08:32:18 04/10/20 22 04/10/2022 SGPT SGPT 28 U/L 10-60 Not Available [facility] [address] [place], [address], 04/10/2022 08:32:18 04/10/20 22 04/10/2022 FREE T4 comments [facility], shade membe r of [address] [place] [address] Medic al Direc tor - Allis on Kwaku kendall MD Not Available [facility] [address] [place], [address], 04/10/2022 10:18:20 04/10/20 22 04/10/2022 FREE T4 free T4 1.05 NG/dL 0.70-1 .80 Not Available [facility] [address] [place] [address], [address], 04/10/2022 10:18:20 04/10/20 22 04/10/2022 TSH comments [facility] shade trujillo membe r of [address] [place] [address] Medic al Direc tor - Allis on Kwaku kendall MD Not Available [facility] [address] [place] [address], [address], 04/10/2022 10:19:53 04/10/20 22 04/10/2022 TSH TSH 7.73 uIU/m L 0.40-4 .00 high Not Available [facility] [address] [place] [address], [address], 04/10/2022 10:19:53 04/18/20 22 04/18/2022 MAMMO , scree simona, bilat eral No observ ation record ed. [email or web address] [facility] [address] [place], [address], 04/18/2022 11:21:25 06/25/20 24 06/25/2024 US retro perit mercado compl ete See Note [facility] , a member of [facility] t Name: EUGENIA MARTEL Date of : 1954 Reason for Exam: Hypert ension Exam Date: 2023 [id number] EST Report Status : Final Orderi ng Provid er: AMPARO MONTOYA PCP: AMPARO MONTOYA Renal ultras ound, 2023. HISTOR Y: Hypert ension . TECHNI QUE: Graysc alcria, color Dopple r, and spectr al Dopple [...] Edit Transc ribed Date: 2023 14:[address], [address], 06/26/2024 13:16:55 Result Notes None recorded. Problems Name Problem SNOMED Code Status Onset Date Resolution Date Notes Provider Name and Address Organization Details Recorded Time Fatigue 66663366 Completed 08/07/2017 Lynsey alexandra [facility] [place] 8 14:41:38 Heel pain 0993296 Completed 04/25/2016 Shannen alexandra [facility] [place] 6 15:49:02 Hypercho lesterol emia 60692728 Active Shannen alexandra [facility] 6 21:59:42 Acute pharyngi tis 165835502 Completed 08/07/2017 Lynsey alexandra, [facility] 8 14:41:42 Insomnia 082202680 Active Shannen alexandra [facility] 6 21:49:10 Single major depressi ve episode, mild Completed 11/15/2023 KARLA OCHOA MD [address] [facility] [address] [address] 4 08:49:07 Screenin g for malignan t neoplasm of breast Completed 201008/07/2017 RECORDED 1 2:02PM BY ELVER TINOCO , OFFICE VISIT Lynsey alexandra, [facility] 8 14:41:17 Screenin g for malignan t neoplasm of colon Completed 201008/07/2017 RECORDED 1 2:02PM BY ELVER TINOCO , OFFICE VISIT Lynsey alexandra, [facility] 8 14:41:22 Tobacco dependen ce syndrome 15481432 Completed 201004/25/2016 RECORDED 1 2:19PM BY ELVER TINOCO , OFFICE VISIT Shannen alexandra [facility] 6 15:49:08 Low back pain 630057364 Active 2010 Lynsey alexandra [facility] 8 14:41:37 Adult health examinat ion Completed 201008/07/2017 IMPRESSIO N: PAP AND MAMMO UTD, WORK ON BACK PIAN SO CAN EXERCISE; RECORDED 1 7:49PM BY SHANNEN EASTON MD, OFFICE VISIT Lynsey Ramirez MA null, [facility] 8 14:41:20 Pure hypercho lesterol emia 982544217 Completed 201108/07/2017 Shannen guzman null, [facility] 8 15:05:17 Acquired hypothyr oidism 259851673 Active 2021 Isatu Juan son null, [facility] 2 07:33:55 Ex-smoke r 7558722 Completed 202311/15/2023 4 cigs a day, loss the a family member KARLA OCHOA MD [address] [facility] [address], [place], [address], [facility] 4 08:48:49 Nicotine dependen ce 80335783 Active 2023 KARLA OCHOA MD [address] [facility] [address], [place], [address], [facility] 4 08:49:01 Major depressi on in remissio n 19082847 Active 2023 KARLA OCHOA MD [address] [facility] [address], [place], [address], [facility] 4 08:49:15 Problem Notes None recorded. Procedures Surgical History Date Name Laterality Status Provider Name and Address Organization Details Recorded Time 11/10/19 23 Date of Last Colonoscopy completed Kerry Villarreal MA [facility] 11/15/2023 08:21:26 11/10/19 23 Colonoscopy completed Ying Zhong [facility] 11/09/2022 09:11:41 04/18/20 22 Most Recent Mammogram completed Martha Aly [facility] 04/18/2022 11:21:18 04/18/20 22 Mammogram both breasts completed Martha Aly [facility] 04/18/2022 11:21:08 09/13/19 18 hysterectomy completed Kerry Villarreal MA [facility] 08/11/2018 15:38:31 07/15/19 18 Hysterectomy completed Kerry Villarreal MA [facility] 03/30/2022 15:07:49 07/15/19 18 Joint Replacement completed Kerry Villarreal MA [facility] 03/30/2022 15:07:49 Arthroscopic Surgery completed Kerry Villarreal MA [facility] 03/30/2022 15:07:49 Imaging Results None recorded. [...] Not available Not available Not available 01/26/20142010 77180 2002 SNOMED Lynsey Bigby JAJA ibrahima [facility] 8 14:40:24 Medications Name Sig Start [...] Updated DateTime 4 165.1 cm 33.1 kg/m2 61503.8 8 g 98 % 98 % 82 /min 98.3 [degF] 127/75 mm[Hg] Kerry Villarreal MA [facility] 4 08:18:37 Date Recorded Body height Body mass index (BMI) Body weight Body temperature Oxygen saturation Oxygen saturation in Arterial blood by Pulse oximetry Heart rate Systolic And Diastolic Provider Name and Address Organization Details Last Updated DateTime 4 165.1 cm 31.2 kg/m2 69434.5 7 g 97.6 [degF] 99 % 99 % 110 /min 138/83 mm[Hg] Kerry Villarreal MA [facility] 4 13:35:04 Date Recorded Body height Body mass index (BMI) Body weight Oxygen saturation Oxygen saturation in Arterial blood by Pulse oximetry Heart rate Body temperature Systolic And Diastolic Provider Name and Address Organization Details Last Updated DateTime 4 165.1 cm 31.5 kg/m2 72545.3 6 g 98 % 98 % 94 /min 97.7 [degF] 132/81 mm[Hg] Kerry Villarreal MA [facility] 4 11:05:05 Date Recorded Body height Body mass index (BMI) Body weight Oxygen saturation Oxygen saturation in Arterial blood by Pulse oximetry Heart rate Body temperature Systolic And Diastolic Provider Name and Address Organization Details Last Updated DateTime 2 165.1 cm 31 kg/m2 97105.2 8 g 98 % 98 % 85 /min 98.06 [degF] 122/79 mm[Hg] Kerry Villarreal MA [facility] 2 15:14:21 Date Recorded Systolic And Diastolic Provider Name and Address Organization Details Last Updated DateTime 06/04/2024 120/64 mm[Hg] KARLA OCHOA MD [address], [place], [address], [facility] 06/04/2024 09:03:17 Date Recorded Body height Body mass index (BMI) Body weight Heart rate Oxygen saturation Oxygen saturation in Arterial blood by Pulse oximetry Body temperature Systolic And Diastolic Provider Name and Address Organization Details Last Updated DateTime 4 165.1 cm 31.3 kg/m2 87149.3 7 g 88 /min 99 % 99 % 98.2 [degF] 151/91 mm[Hg] Eliana eLy MA [facility] 08:50:27 Social History Question Answer Notes LastModified by Organizat ion Details LastModified Time Tobacco Smoking Status Current Every Day Smoker JAJA Quintana [facility] 11/15/2023 08:20:25 Is Blood Transfusion Acceptable In An Emergency? Yes Information not available 04/20/2015 What Is Your Level Of Caffeine Consumption? Moderate [email or web address] Information not available 03/12/2014 How Much Tobacco Do You Chew? None [email or web address] Information not available 03/30/2022 What Type Of Diet Are You Following? REGULAR [email or web address] Information not available 03/12/2014 When Did You Quit Smoking? 6-10yearssi ncelastciga rette [email or web address] Information not available 03/30/2022 Are There Any Guns Present In Your Home? No [email or web address] Information not available 03/30/2022 Live Alone Or With Others? With Others [email or web address] Information not available 03/30/2022 Do You Take Precautions To Prevent Distracted Driving? Yes [email or web address] Information not available 04/20/2015 How Often Do You Need To Have Someone Help You When You Read Instructions, Pamphlets, Or Other Written Material From Your Doctor Or Pharmacy? Never [email or web address] Information not available 03/30/2022 Have You Served In The ? No [email or web address] Information not available 04/25/2016 *AWV ONLY* Are You Presently Prescribed Opioid Medication By PCP Or Specialist? If YES -Provider Assess The Benefit For Other, Non-opioid Pain Therapies Instead, Even If The Patient Does Not Have OUD But Is Possibly At Risk. No [email or web address] Information not available 11/15/2023 What Was The Date Of Your Most Recent Tobacco Screening? 03/30/2020 Information not available 11/15/2023 How Many Children Do You Have? 3 [email or web address] Information not available 03/12/2014 What Is Your Current Pack Years? 10packyears [email or web address] Information not available 03/30/2022 What Is Your Relationship Status? [email or web address] Information not available 03/30/2022 Do You Use Your Seat Belt Or Car Seat Routinely? Yes [email or web address] Information not available 03/30/2022 Seat Belts Used Routinely Yes [email or web address] Information not available 03/30/2022 Are You Sexually Active? No [email or web address] Information not available 03/30/2022 Smoke Alarm In Home Yes [email or web address] Information not available 03/30/2022 Do You Have Smoke And Carbon Monoxide Detectors In Your Home? Yes [email or web address] Information not available 03/30/2022 At What Age Did You Start Smoking Tobacco? 17 Information not available 03/30/2022 Are You Passively Exposed To Smoke? No abigby Information not available 08/07/2017 How Much Tobacco Do You Smoke? No 4 Cigarrettes A Day [email or web address] Information not available 11/15/2023 General Stress Level Low Information not available 11/15/2023 Do You Use Sunscreen Routinely? Yes [email or web address] Information not available 03/12/2014 How Many Years Have You Smoked Tobacco? 15 [email or web address] Information not available 03/30/2022 Sex: Unknown Functional Status Question Answer Note LastModified by Organizat ion Details LastModified Time What is your level of alcohol consumption? Occasional [email or web address] Information not available 03/12/2014 Do you or have you ever used smokeless tobacco? Never used smokeless tobacco [email or web address] Information not available 03/30/2022 Are you currently employed? Yes [email or web address] Information not available 03/12/2014 Are you able to walk independently without assistance or assistive devices? YESWOREST [email or web address] Information not available 03/30/2022 Are you able to care for yourself independently? Yes [email or web address] Information not available 03/12/2014 What is your occupation? [employer] [email or web address] Information not available 03/30/2022 What is your exercise level? Moderate [email or web address] Information not available 03/30/2022 Mental Status None recorded. Family History Relationship Description Onset Age of this Age Resolved Age Notes LastModified by Organization Details LastModified Time Mother Dementia [email or web address] Not availab le 04/20/2015 14:41:02 Brother Parkinson's [...] virus, quadrivalent, preservative 6 completed JAJA Quintana, [facility] 04/25/2016 15:25:20 Influenza, split virus, quadrivalent, preservative 7 completed JAJA Quintana [facility] 08/07/2017 14:54:01 Influenza, split virus, quadrivalent, preservative 8 completed JAJA Quintana [facility] 08/11/2018 15:34:41 COVID-19, mRNA, LNP-S, PF, 30 mcg/0.3 mL dose 1 completed JAJA Quintana [facility] 03/30/2022 15:15:07 COVID-19, mRNA, LNP-S, PF, 30 mcg/0.3 mL dose 1 mahesh Villarreal, [place] null, [facility] 03/30/2022 15:15:07 COVID-19, mRNA, LNP-S, PF, 30 mcg/0.3 mL dose 0 completed JAJA Quintana, [facility] 03/30/2022 15:15:07 Influenza, high-dose, trivalent, PF 5 completed JAJA Quintana, [facility] 03/30/2022 15:15:07 Influenza, adjuvanted, trivalent, PF 4 completed JAJA Presley, [facility] 06/04/2024 08:50:43 Past Encounters Encounter ID Performer Location Encounter Start Date Encounter Closed Date Diagnosis/Indication Diagnosis SNOMED-CT Code Diagnosis ICD10 Code Diagnosis IMO Codes Diagnosis Note [id number] [facility] erc [address] [place] [address] [address] [place] [address] 07/13/2011 00:00:00 [id number] Shannen gill MD Main Office [address] [facility] [address] [place] [address] 03/12/2014 12:44:04 03/12/2014 14:04:15 Adult health examination 680605463 utd on pap amnd colonoscpy , will setup mammogram, is overdue Pure hypercholesterolemia 002852926 Fatigue 19711060 check sugarfatig ue Heel pain 2915571 right heel, no plantar fasciatis or achilles involvemen t, pt to use good shoes, most likely due to trauma form left knee pain and limping. [id number] TYRON Grigsby Main Office [address] [facility] [address] [place] [address] 06/14/2014 11:20:55 06/14/2014 12:01:43 Acute thoracic back pain 211338522 likely rhomboid strain. will get cxr since is a smoker and she is worried about lung cancer. she will call if worsening. Tobacco de pendence syndrome 85402366 [id number] Shannen gill MD Main Office [address] [facility] [address] [place] [address] 04/20/2015 14:07:03 04/20/2015 15:24:23 Adult health examination 311476904 Z00.00 utd on pap and colonoscop y, will setup mammogram, is overdue and she works at [employer] mammogram Hypercholesterolemia 136 62377 E78.0 check fasting Fatigue 27239463 R53.83 check sugar [id number] Jigar Marmolejo MD Main Office [address] [address] [place] [address] 06/07/2015 14:08:22 06/07/2015 15:13:08 Acute pharyngitis 520443132 J02.9 her throat pain is probably from PND from allergies. She will try OTC fluticason e and loratadine and will call her next week if her symptoms persist. [id number] Shannen gill MD Main Office [address] [address] [place] [address] 10/06/2015 10:38:03 10/06/2015 11:27:05 Insomnia 809894897 G47.00 treat as below, treating depression too Single austyn or depressive episode, mild 740760243 F32.0 start with .5mg return 6 weeks Fatigue 68705839 R53.83 check sugar Hypercholesterolemia 136 67287 E78.0 check lab she is due [id number] Shannen gill MD Main Office [address] [address] [place] [address] 11/14/2015 14:05:54 11/14/2015 15:02:43 Insomnia 216938132 G47.00 treat as below, treating depression too Single austyn or depressive episode, mild 748914029 F32.0 mood improving [id number] Shannen gill MD Main Office [address] [address] [place] [address] 04/25/2016 15:11:58 04/25/2016 16:05:21 Adult health examination 232680766 Z00.00 utd on pap and colonoscop y, will setup mammogram, is overdue and she works at [employer] mammogram Ex-smoker 3338105 Z87.[address] chest screening due to less than 20 years and less than a pack a day quit smoking Insomnia 895639453 G47.0 0 treat as below, treating depression too Single austyn or depressive episode, mild 364084235 F32.0 mood is good, continue meds [id number] Shannen gill MD Main Office [address] [facility] [address] [place] [address] 08/07/2017 14:15:57 08/07/2017 15:23:24 Screening for malignant neoplasm of breast 045637226 Z12.39 pt to set up appt Adult heal th examination 923383532 Z00.00 pap is utd, will get hysterecto my. soon, mammo is utd and colonoscop y too Hypercholesterolemia 136 48568 E78.2 check fasting, is on WW Uterine prolapse 2068750 5 N81.4 will be getting surgery by Dr Redmond, laproscopi c Urinary incontinence 165 208019 R32 will get bladder suspension . Single austyn or depressive episode, in full remission 668907240 F32.5 well controlled on celexa Skin lesion 12772804 L98 .9 mole on back that needs to be checked [id number] Shannen gill MD Main Office [address] [facility] [address] [facility] [place] [address] 12/04/2017 10:16:01 12/04/2017 10:57:30 Pruritic rash 96388965 L28.2 most likley contact dermatitis to wearing a new shirt or neck pillow with perfuse on it, also scabies as below, tx with prednisone , if nto better see adele Infestatio n by Sarcoptes scabiei dani hominis 905775632 B86 tx as instructed [id number] Shannen gill MD Main Office [address] [facility] [address] [place] [address] 02/10/2018 10:35:52 02/10/2018 11:15:02 Achilles tendinitis 50980511 M76.61 pt to ice, rest, wear sneakers, stretch, set up PT and if not better call for podiatry referral, med as below with food, stop if any GI upset Single austyn or depressive episode, mild 660143490 F32.0 pt stopped meds, feels her mood is good. [id number] Shannen gill MD Main Office [address] [facility] [address] [place] [address] 08/11/2018 15:20:07 08/11/2018 16:10:53 Adult health examination 023147868 Z00.00 pt will set up mammogram, is overdue, she colonoscop y utd, and no pap needed. Screening for malignant neoplasm of breast 894218059 Z12.39 pt to set up appt Hypercholesterolemia 136 00703 E78.2 check fasting, is on WW Fatigue 41750692 R53.83 check sugar Major depr ession in remission 47788587 F32.5 on celexa 10mg, works and tolerates it well [id number] Shannen gill MD Main Office [address] [facility] [address] [place] [address] 03/30/2022 14:52:10 03/30/2022 16:02:09 Adult health examination 984892777 Z00.00 Pt is in good general health. Social and family history reviewed. Immunizati ons reviewed, advised annual flu shot, can get at work, rec shingles vaccine. She is up to date oneye providers, due for dentist, mammogram up to date, colon up to date, Reviewed diet and exercise. Hypercholesterolemia 136 87101 E78.2 Acquired hypothyroidism 336366432 E03.9 Insomnia 570979557 G47.0 9 discussed sleep hygeine, use melatonin at night, do no stay in bed awake for more than 20 min, do alterative choice until sleep and then return to bed, pre worry , progressiv e relaxation , bed later, she is getting 6 hour but goes to bed early. Add exericise Major depr ession single episode, in partial remission 69709727 F32.4 stable, no meds at this time Screening for malignant neoplasm of breast 911561023 Z12.39 has appt in apr Screening for malignant neoplasm of colon 835789767 Z12.11 pt to set up appt [id number] KARLA OCHOA MD Main Office [address] [facility] [address] [place] [address] 11/15/2023 08:05:18 11/15/2023 08:46:30 Adult health examination 631739163 Z00.00 Health Maintenanc e FemaleA) Patient was [...] refusedTdA P: allergicZo ster: never had chicken anvYNI71: due at 37ITPG23: due at 78XIG71:PC V15:COVID: 07/06/2020 , 07/27/2020, 04/14/2021 D) Routine blood work orderedE) Updated patient's history RTC in one year for annual exam or sooner if any acute complaints Acquired hypothyroidism 956255826 E03.9 - c/w levothyrox ine 50mcg- will check levels Hypercholesterolemia 136 40032 E78.2 Insomnia 252999276 G47.0 9 - currently under good control- counselled on sleep hygiene Fatigue 65474573 R53.83 Z00.00 Bone density finding 385 515276 M85.89 Nicotine dependence 5629 4008 F17.200 - pt started smoking again after approximat don 15 years of stopping- currently smoking 4 cigs a day- is thinking about quitting [id number] KARLA OCHOA MD Main Office [address] [facility] [address] [facility] [place], [place] [address] 02/25/2024 13:23:27 02/25/2024 13:52:51 Acquired hypothyroidism [id number] E03.9 - c/w levothyrox ine 75mcg- recent levels were normal done on 01/2024 Hypercholesterolemia 136 35028 E78.2 - ASCVD score of 7.3%- need [...] levels.- Eat more fruits and veggies. Insomnia [id number] G47.0 9 - currently under good control- counselled on sleep hygiene Nicotine dependence [id number] [id number] F17.200 - pt started smoking again after approximat don 15 years of stopping- currently smoking 4 cigs a day- is thinking about quitting Elevated blood-pressure reading without diagnosis of hypertension [id number] R03.0 - BP today is 138/83- pt is usually under very good control however had a very stressful visit prior to seeing MD today Tachycardia [id number] R00. 0 - HR noted to be 110, similar on repeat- elevated HR due to tachycardi a- RTC in one week, if no improvemen t EKG- ED precaution s given [id number] KARLA OCHOA MD Main Office [address] [place] [address] 03/03/2024 10:40:41 03/03/2024 11:19:00 Elevated blood-pressure reading without diagnosis of hypertension [id number] R03.0 - BP today is 132/81 improved from last time- pt is usually under very good control however had a very stressful visit prior to seeing today- pt was advised to get BP machine to check her blood pressure at home- RTC in May as pt will get BP machine in April Tachycardia [id number] R00. 0 - resolved- HR today is 94 [id number] KARLA OCHOA MD Main Office [address] [place] [address] 06/04/2024 08:35:22 06/04/2024 09:08:41 Essential hypertension [id number] I10 - oscillatin g between goal and [...] low-fat dairy. These foods are high in orsales nutrients such as potassium, magnesium, calcium, fiber, [...] ve trouble with your vision. Acquired hypothyroidism [id number] E03.9 - pt has stopped levothyrox ine [...] Policy Number Policy Sood Covered Member ID Osod Member ID Guarantor Name 11/26/2024 1 [employer] (MEDICARE REPLACEMEN T/ADVANTAG E - PPO) [id number] Eugenia Martel [id number] Eugenia Martel 02/25/2024 1 [employer] (POS) [id number] Eugenia Martel [id number] Eugenia Martel 02/25/2024 1 [facility] [place] [place] [id number] Eugenia Martel [id number] Eugenia Martel Notes Date Note Type Note Provider Name and Address Organization Details Recorded Time 2 text/html Medicare Annual Wellness VisitReported by Patient Generic HPI TemplateReported by Patient Physical age 68, 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 no DFA sleeps 6 hours 9-3. [facility] 07:36:06 4 text/html Medicare Annual [...] worse? No Advance Directive: none on file AKRLA OCHOA MD [address], [phone], [facility] [place]/15/2023 08:54:21 4 text/html HyperlipidemiaReported by PatientHPIFor [...] patient's normal today. KARLA OCHOA MD [address], [phone], [facility] [place] 02/25/2024 14:01:05 4 text/html ROS as noted [...] cause some anxiety. KARLA OCHOA MD [address], [phone], [facility] [place] 03/03/2024 11:18:35 4 text/html ROS as noted [...] average from 130-135/80-86. KARLA OCHOA MD [address], [phone], [facility] [place] 06/04/2024 09:11:40 OBGyn Episode No OBEpisode recorded.
== END 2025-05-24 15:00 | disposition home or self-care (01) ==
LOC: HO.HMCSH 14:17
PROVIDERS: PCP Physician Assistant Medical; Visit Provider Physician Assistant Medical
DX: I10 Essential (primary) hypertension (principal); E78.5 Hyperlipidemia, unspecified; E78.00 Pure hypercholesterolemia, unspecified; E04.1 Nontoxic single thyroid nodule; I51.89 Other ill-defined heart diseases; Z79.2 Long term (current) use of antibiotics

== ENCOUNTER → 2025-05-24 14:17 | Outpatient (BNVA) | payer MEDICARE, SELFPAY | PROVIDERS: PCP Physician Assistant Medical; Visit Provider Physician Assistant Medical | DX: I10 Essential (primary) hypertension (principal); E78.00 Pure hypercholesterolemia, unspecified; E04.1 Nontoxic single thyroid nodule; I51.89 Other ill-defined heart diseases; Z79.2 Long term (current) use of antibiotics; Z79.899 Other long term (current) drug therapy | CPT/HCPCS: 96127; 99212 ==

== ENCOUNTER 2025-06-15 11:12 | Outpatient (REF) | payer MEDICARE, SELFPAY ==
--- NOTE | ~2025-06-15 | US_ITS ---
EXAMINATION: US THYROID HISTORY: E07.9 - Disorder of thyroid, unspecified TECHNIQUE: Real-time grayscale ultrasound imaging was performed and images were reviewed. COMPARISON: There are no prior studies available for comparison. FINDINGS: SIZE: The right thyroid lobe measures 4.6 x 2.4 x 1.7 cm. The left thyroid lobe measures 4.0 x 2.1 x 1.6 cm. The isthmus measures 4 mm. FLOW: Flow to the gland is increased. ECHOGENICITY: The echotexture of the gland is heterogeneous. NODULES: No discrete nodules are identified. US/US thyroid IMPRESSION: Heterogeneous thyroid echotexture with increased vascularity. No discrete nodules are identified. ACR TI-RADS Guidelines TR1 (0 points): Benign. No follow-up or biopsy required TR2 (2 points): Not Suspicious. No biopsy or follow up indicated TR3 (3 points): Mildly Suspicious. FNA if >= 2.5 cm, Follow if >= 1.5 cm TR4 (4-6 points): Moderately Suspicious. FNA if >= 1.5 cm, Follow if >= 1.0 cm TR5 (>=7 points): Highly Suspicious. FNA if >= 1.0 cm, Follow if >= 0.5 cm Electronically signed by: Raza Oliveira MD 06/15/2025 11:46 AM [facility]
--- OUTSIDE RECORDS SUMMARY | 2025-06-15 13:22 | XMS_ITS | Data Portability ---
Author Organization [facility], Main Office Address [address] [place] [address] Care Team Providers Care Sephora Operations Consultant Name Role Phone МАРИНА RODRIGUEZ OTHER AMIRA MEYERS OTHER [phone] FRANK SAUNDERS [employer] [phone] KARLA OCHOA Primary Care Provider Assessment No assessment recorded. Plan of Treatment Reminders Order Date Submit Date Provider Last Modified By Organization Details Last Modified Time Details Appointments None recorde d. Lab TSH + free T4, serum [email or web address] [place] [address] Lab, [place], [address], 09:08:42 BMP, serum or plasma [email or web address] [place] [address] Lab, [place], [address], 09:08:42 TSH, ultra-s ensitiv e, serum 2023 024 [facility] (Centralized Electronic Ordering - All Locations), Patient Can Go To The Location Of Their Choice, 08:42:48 lipid panel, serum 2023 024 [facility] (Centralized Electronic Ordering - All Locations), Patient Can Go To The Location Of Their Choice, [address] 11:07:29 BMP, serum or plasma 2023 024 [facility], [address], [place], [address], 4 08:42:48 CBC w/ auto diff 2023 024 [facility], [address], [place], [address], 4 11:14:03 TSH, serum or plasma 2021 022 [facility], [address], [place], [address], 2 10:19:54 T4, free, serum 2021 022 [facility], [address], [address], [place], [address], 2 10:18:20 lipid panel, serum 2021 022 [facility], [address], [address], [place], [address], 2 08:32:14 ALT (alanin e aminotr ansfera se), serum or plasma 2021 022 [facility], [address], [place], [address], 2 08:32:18 Referral gastroe nterolo gist referra l 2021 022 [email or web address] Not available 3 11:30:24 Procedures colonos copy screeni ng (PROC) 2021 022 Not available 3 13:26:41 Surgeries None recorde d. Imaging US, retrope ritoneu m, complet e - kidney and bladder [email or web address] [place] [address] (Central Scheduling Radiology), [address] [place] [address], [address], 11:57:53 bone density 2023 024 [email or web address] Not [...] By Organization Details Last Modified Time 03/30/2022 [id number] well visit, over 65: care instructions [email or web address] Not available 03/30/2022 15:49:34 11/15/2023 [id number] insomnia: care instructions Not available 11/15/2023 08:42:39 well visit, over 65: care instructions Not available 11/15/2023 08:42:39 preventing falls: care instructions Not available 11/15/2023 08:42:38 Quitting Tobacco: Care Instructions Not available 11/15/2023 08:53:34 02/25/2024 [id number] Quitting Tobacco: Care Instructions Not available 02/25/2024 14:00:50 insomnia: care instructions Not available 02/25/2024 14:00:49 06/04/2024 [id number] high blood pressure: care instructions Not available 06/04/2024 09:08:42 learning about high blood pressure Not available 06/04/2024 09:08:42 Reason for Referral [employer] Referral for Screening for malignant neoplasm of colon Referring Physician: Isatu Velazquez, Family Medicine, Encounter Date: 03/30/2022 Results Created Date Observation Date Name Description Value Unit Range Abnormal Flag Note LastModifiedBy Organization Detail LastModifiedTime 04/10/20 22 04/10/2022 LIPID PROFI LE comments [facility], a membe r of [facility] [address] [facility] [place] [address] Medic al Direc tor - Allis on Kwaku kendall MD Not Available [facility] [address] [place] [address], [address], 04/10/2022 08:32:14 04/10/20 22 04/10/2022 LIPID PROFI LE cholesterol 238 mg/dL 0-200 high Not Available [facility] [address] [place] [address], [address], 04/10/2022 08:32:14 04/10/20 22 04/10/2022 LIPID PROFI LE triglyceride s 87 mg/dL 0-150 Not Available [facility] [address] [place] [address], [address], 04/10/2022 08:32:14 04/10/20 22 04/10/2022 LIPID PROFI LE HDL cholesterol 54 mg/dL >40 Not Available [facility] [address] [place] [address], [address], 04/10/2022 08:32:14 04/10/20 22 04/10/2022 LIPID PROFI LE LDL calculated 167 mg/dL 0-100 high Not Available [facility] [address] [place] [address], [address], 04/10/2022 08:32:14 04/10/20 22 04/10/2022 LIPID PROFI LE TC-HDLC ratio 4.4 mg/dL 0-4.4 Not Available [facility] [address] [place] [address], [address], 04/10/2022 08:32:14 04/10/20 22 04/10/2022 SGPT comments [facility], a mem[facility] r of [facility] [address] [facility]. [place], [place] [address] Medic al Direc tor - Allis on Kwaku kendall MD Not Available [facility] [address] [place] [address], [address], 04/10/2022 08:32:18 04/10/20 22 04/10/2022 SGPT SGPT 28 U/L 10-60 Not Available [facility] [address] [place], [address], 04/10/2022 08:32:18 04/10/20 22 04/10/2022 FREE T4 comments [facility] e[facility], shade membe r of [address] [place] [address] Medic al Direc tor - Allis on Kwaku kendall MD Not Available [facility] [address] [place], [address], 04/10/2022 10:18:20 04/10/20 22 04/10/2022 FREE T4 free T4 1.05 NG/dL 0.70-1 .80 Not Available [facility] [address] [place] [address], [address], 04/10/2022 10:18:20 04/10/20 22 04/10/2022 TSH comments [facility] shade trujillo membe r of [address] [place] [address] Medic al Direc tor - Allis on Kwaku kendall MD Not Available [facility] [address] [place] [address], [address], 04/10/2022 10:19:53 04/10/20 22 04/10/2022 TSH TSH 7.73 uIU/m L 0.40-4 .00 high Not Available [facility] [address] [place] [address], [address], 04/10/2022 10:19:53 04/18/20 22 04/18/2022 MAMMO , scree simona, bilat eral No observ ation record ed. [facility] [address] [place], [address], 04/18/2022 11:21:25 06/25/20 24 06/25/2024 US retro perit mercado compl ete See Note [facility] , a member of [facility] t Name: EUGENIA MARTEL Date of : 1954 Reason for Exam: Hypert ension Exam Date: 2023 192225 EST Report Status : Final Orderi ng [...] Edit Transc ribed Date: 2023 14:[address], [address], 06/26/2024 13:16:55 Result Notes None recorded. Problems Name Problem SNOMED Code Status Onset Date Resolution Date Notes Provider Name and Address Organization Details Recorded Time Fatigue 67441412 Completed 08/07/2017 Lynsey alexandra [facility] [place] 8 14:41:38 Heel pain 9384963 Completed 04/25/2016 Shannen alexandra [facility] [place] 6 15:49:02 Hypercho lesterol emia 94207896 Active Shannen alexandra [facility] 6 21:59:42 Acute pharyngi tis 701539801 Completed 08/07/2017 Lynsey alexandra, [facility] 8 14:41:42 Insomnia 709378733 Active Shannen alexandra [facility] 6 21:49:10 Single major depressi ve episode, mild Completed 11/15/2023 KARLA OCHOA MD [address] [facility] [address] [address] 4 08:49:07 Screenin g for malignan t neoplasm of breast Completed 201008/07/2017 RECORDED 1 2:02PM BY ELVER TINOCO , OFFICE VISIT Lynsey alexandra, [facility] 8 14:41:17 Screenin g for malignan t neoplasm of colon Completed 201008/07/2017 RECORDED 1 2:02PM BY ELVER TINOCO , OFFICE VISIT Lynsey alexandra, [facility] 8 14:41:22 Tobacco dependen ce syndrome 85716886 Completed 201004/25/2016 RECORDED 1 2:19PM BY ELVER TINOCO , OFFICE VISIT Shannen alexandra [facility] 6 15:49:08 Low back pain 710253424 Active [address] [facility] 8 14:41:37 Adult health examinat ion Completed 201008/07/2017 IMPRESSIO N: PAP AND MAMMO UTD, WORK ON BACK PIAN SO CAN EXERCISE; RECORDED 1 7:49PM BY SHANNEN EASTON MD, OFFICE VISIT Lynsey Ramirez MA null, [facility] 8 14:41:20 Pure hypercho lesterol emia 734424263 Completed 201108/07/2017 Shannen guzman null, [facility] 8 15:05:17 Acquired hypothyr oidism 401160756 Active 2021 Isatu Juan son null, [facility] 2 07:33:55 Ex-smoke r 0269783 Completed 202311/15/2023 4 cigs a day, loss the a family member KARLA OCHOA MD [address] [facility] [address], [place], [address], [facility] 4 08:48:49 Nicotine dependen ce 33712067 Active 2023 KARLA OCHOA MD [address] [facility] [address], [place], [address], [facility] 4 08:49:01 Major depressi on in remissio n 58724653 Active 2023 KARLA OCHOA MD [address] [facility] [address], [place], [address], [facility] 4 08:49:15 Problem Notes None recorded. Procedures Surgical History Date Name Laterality Status Provider Name and Address Organization Details Recorded Time 11/10/19 23 Date of Last Colonoscopy completed Kerry Villarreal MA [facility] 11/15/2023 08:21:26 11/10/19 23 [address] Ying Zhong [facility] 11/09/2022 09:11:41 04/18/20 22 Most Recent Mammogram completed Martha Aly [facility] 04/18/2022 11:21:18 04/18/20 22 Mammogram both breasts completed Martha Aly [facility] 04/18/2022 11:21:08 09/13/19 18 hysterectomy completed Kerry Villarreal MA [facility] 08/11/2018 15:38:31 07/15/19 18 Hysterectomy completed Kerry Villarreal MA [facility] 03/30/2022 15:07:49 07/15/19 18 Joint Replacement completed Kerry Villarreal MA [facility] 03/30/2022 15:07:49 Arthroscopic Surgery completed Kerry Villarreal MA [facility] 03/30/2022 15:07:49 Imaging Results None [...] Not available Not available Not available 01/26/20142010 05177 2002 SNOMED Lynsey Bigby JAJA ibrahima [facility] 8 14:40:24 Medications Name Sig [...] mass index (BMI) Body weight Oxygen saturation Heart rate Body temperature Systolic And Diastolic Provider Name and Address Organization Details Last Updated DateTime 4 165.1 cm 33.1 kg/m2 30993.8 8 g 98 % 82 /min 98.3 [degF] 127/75 mm[Hg] Kerry Villarreal MA [facility] 4 08:18:37 Date Recorded Body height Body mass index (BMI) Body weight Body temperature Oxygen saturation Heart rate Systolic And Diastolic Provider Name and Address Organization Details Last Updated DateTime 4 165.1 cm 31.2 kg/m2 06438.5 7 g 97.6 [degF] 99 % 110 /min 138/83 mm[Hg] Kerry Villarreal MA [facility] 4 13:35:04 Date Recorded Body height Body mass index (BMI) Body weight Oxygen saturation Heart rate Body temperature Systolic And Diastolic Provider Name and Address Organization Details Last Updated DateTime 4 165.1 cm 31.5 kg/m2 03389.3 6 g 98 % 94 /min 97.7 [degF] 132/81 mm[Hg] Kerry Villarreal MA [facility] 4 11:05:05 Date Recorded Body height Body mass index (BMI) Body weight Oxygen saturation Heart rate Body temperature Systolic And Diastolic Provider Name and Address Organization Details Last Updated DateTime 2 165.1 cm 31 kg/m2 16951.2 8 g 98 % 85 /min 98.06 [degF] 122/79 mm[Hg] Kerry Villarreal MA [facility] 2 15:14:21 Date Recorded Systolic And Diastolic Provider Name and Address Organization Details Last Updated DateTime 06/04/2024 120/64 mm[Hg] KARLA OCHOA MD [address], [address], [facility] 06/04/2024 09:03:17 Date Recorded Body height Body mass index (BMI) Body weight Heart rate Oxygen saturation Body temperature Systolic And Diastolic Provider Name and Address Organization Details Last Updated DateTime 4 165.1 cm 31.3 kg/m2 88330.3 7 g 88 /min 99 % 98.2 [degF] 151/91 mm[Hg] Eliana Ley MA [facility] 4 08:50:27 Social History Question Answer Notes LastModified by Organizat ion Details LastModified Time Tobacco Smoking Status Current Every Day [facility] 11/15/2023 08:20:25 Is Blood Transfusion Acceptable In An Emergency? Yes [email or web address] Information not available 04/20/2015 What Is Your Level Of Caffeine Consumption? Moderate [email or web address] Information not available 03/12/2014 How Much Tobacco Do You Chew? None [email or web address] Information not available 03/30/2022 What Type Of Diet Are You Following? REGULAR [email or web address] Information not available 03/12/2014 When Did You Quit Smoking? 6-10yearssi ncelastciga rette [email or web address] Information not available 03/30/2022 Are There Any Guns Present In Your Home? No [email or web address] Information not available 03/30/2022 Live Alone Or With Others? With Others [email or web address] Information not available 03/30/2022 Do You Take Precautions To Prevent Distracted Driving? Yes [email or web address] Information not available 04/20/2015 How Often Do You Need To Have Someone Help You When You Read Instructions, Pamphlets, Or Other Written Material From Your Doctor Or Pharmacy? Never [email or web address] Information not available 03/30/2022 Have You Served In The ? No [email or web address] Information not available 04/25/2016 *[facility] ONLY* Are You Presently Prescribed Opioid Medication By PCP Or Specialist? If YES -Provider Assess The Benefit For Other, Non-opioid Pain Therapies Instead, Even If The Patient Does Not Have OUD But Is Possibly At Risk. No [email or web address] Information not available 11/15/2023 What Was The Date Of Your Most Recent Tobacco Screening? 03/30/2020 [email or web address] Information not available 11/15/2023 How Many Children Do You Have? 3 [email or web address] Information not available 03/12/2014 What Is Your Current Pack Years? 10packyears [email or web address] Information not available 03/30/2022 What Is Your Relationship Status? [email or web address] Information not available 03/30/2022 Do You Use Your Seat Belt Or Car Seat Routinely? Yes [email or web address] Information not available 03/30/2022 Seat Belts Used Routinely Yes [email or web address] Information not available 03/30/2022 Are You Sexually Active? No [email or web address] Information not available 03/30/2022 Smoke Alarm In Home Yes [email or web address] Information not available 03/30/2022 Do You Have Smoke And Carbon Monoxide Detectors In Your Home? Yes [email or web address] Information not available 03/30/2022 At What Age Did You Start Smoking Tobacco? 17 [email or web address] Information not available 03/30/2022 Are You Passively Exposed To Smoke? No [email or web address] Information not available 08/07/2017 How Much Tobacco Do You Smoke? No 4 Cigarrettes A Day [email or web address] Information not available 11/15/2023 General Stress Level Low [email or web address] Information not available 11/15/2023 Do You Use Sunscreen Routinely? Yes [email or web address] Information not available 03/12/2014 How Many Years Have You Smoked Tobacco? 15 Information not available 03/30/2022 Sex: Unknown Functional Status Question Answer Note LastModified by Organizat ion Details LastModified Time What is your level of alcohol consumption? Occasional [email or web address] Information not available 03/12/2014 Do you or have you ever used smokeless tobacco? Never used smokeless tobacco [email or web address] Information not available 03/30/2022 Are you currently employed? Yes [email or web address] Information not available 03/12/2014 Are you able to walk independently without assistance or assistive devices? YESWOREST Information not available 03/30/2022 Are you able to care for yourself independently? Yes [email or web address] Information not available 03/12/2014 What is your occupation? [employer] [email or web address] Information not available 03/30/2022 What is your exercise level? Moderate [email or web address] Information not available 03/30/2022 Mental Status None recorded. Family History Relationship Description Onset Age of this Age Resolved Age Notes LastModified by Organization Details LastModified Time Mother Dementia [email or web address] Not availab le 04/20/2015 14:41:02 Brother Parkinson's disease [email or web address] Not available 2021 14:52:49 Notes:No breast or colon can cer Medical History Condition Response Coronary Artery Disease N Gout N Other N Blood Diseases N Kidney Stones N Hyperthyroidism N Breast Cancer N mrsa exposure N Lung Disease N Hypothyroidism N Depression N COPD N Defects or Inherited Disease N Developmental [...] split virus, quadrivalent, preservative 6 completed [facility] 04/25/2016 15:25:20 Influenza, split virus, quadrivalent, preservative 7 completed [facility] 08/07/2017 14:54:01 Influenza, split virus, quadrivalent, preservative 8 completed [facility] 08/11/2018 15:34:41 COVID-19, mRNA, LNP-S, PF, 30 mcg/0.3 mL dose [address] [facility] 03/30/2022 15:15:07 COVID-19, mRNA, LNP-S, PF, 30 mcg/0.3 mL dose [address] [facility] 03/30/2022 15:15:07 COVID-19, mRNA, LNP-S, PF, 30 mcg/0.3 mL dose [address] [facility] 03/30/2022 15:15:07 Influenza, high-dose, trivalent, PF [address] [facility] 03/30/2022 15:15:07 Influenza, adjuvanted, trivalent, PF [address] [facility] 06/04/2024 08:50:43 Past Encounters Encounter ID Performer Location Encounter Start Date Encounter Closed Date Diagnosis/Indication Diagnosis SNOMED-CT Code Diagnosis ICD10 Code Diagnosis IMO Codes Diagnosis Note [id number] [employer] [place] [address] [place] [address] [address] [place] [address] 07/13/2011 00:00:00 [id number] Shannen gill MD Main Office [address] [place] [address] 03/12/2014 12:44:04 03/12/2014 14:04:15 Adult health examination 908894727 utd on pap amnd colonoscpy , will setup mammogram, is overdue Pure hypercholesterolemia 774722152 Fatigue 69649548 check sugarfatig ue Heel pain 3240495 right heel, no plantar fasciatis or achilles involvemen t, pt to use good shoes, most likely due to trauma form left knee pain and limping. [id number] TYRON Grigsby Main Office [address] [place] [address] 06/14/2014 11:20:55 06/14/2014 12:01:43 Acute thoracic back pain 549531680 likely rhomboid strain. will get cxr since is a smoker and she is worried about lung cancer. she will call if worsening. Tobacco de pendence syndrome 79160032 [id number] Shannen gill MD Main Office [address] [address] [place] [address] 04/20/2015 14:07:03 04/20/2015 15:24:23 Adult health examination 945101653 Z00.00 utd on pap and colonoscop y, will setup mammogram, is overdue and she works at [employer] Hypercholesterolemia 136 26692 E78.0 check fasting Fatigue 34618354 R53.83 check sugar [id number] Jigar Marmolejo MD Main Office [address] [facility] [address] [place] [address] 06/07/2015 14:08:22 06/07/2015 15:13:08 Acute pharyngitis 386450757 J02.9 her throat pain is probably from PND from allergies. She will try OTC fluticason e and loratadine and will call her next week if her symptoms persist. [id number] Shannen gill MD Main Office [address] [facility] [address] [place] [address] 10/06/2015 10:38:03 10/06/2015 11:27:05 Insomnia 512727690 G47.00 treat as below, treating depression too Single austyn or depressive episode, mild 822503006 F32.0 start with .5mg return 6 weeks Fatigue 94121174 R53.83 check sugar Hypercholesterolemia 136 24511 E78.0 check lab she is due [id number] Shannen gill MD Main Office [address] [facility] [address] [place] [address] 11/14/2015 14:05:54 11/14/2015 15:02:43 Insomnia 817890226 G47.00 treat as below, treating depression too Single austyn or depressive episode, mild 863943354 F32.0 mood improving [id number] Shannen gill MD Main Office [address] [facility] [address] [facility] [address] 04/25/2016 15:11:58 04/25/2016 16:05:21 Adult health examination 089015309 Z00.00 utd on pap and colonoscop y, will setup mammogram, is overdue and she works at [employer] Ex-smoker 2363633 Z87.[address] chest screening due to less than 20 years and less than a pack a day quit smoking Insomnia 934015549 G47.0 0 treat as below, treating depression too Single austyn or depressive episode, mild 846824311 F32.0 mood is good, continue meds [id number] Shannen gill MD Main Office [address] [facility] [address] [place] [address] 08/07/2017 14:15:57 08/07/2017 15:23:24 Screening for malignant neoplasm of breast 465051250 Z12.39 pt to set up appt Adult heal th examination 326508514 Z00.00 pap is utd, will get hysterecto my. soon, mammo is utd and colonoscop y too Hypercholesterolemia 136 52493 E78.2 check fasting, is on WW Uterine prolapse 0583135 5 N81.4 will be getting surgery by Dr Redmond, laproscopi c Urinary incontinence 165 890535 R32 will get bladder suspension . Single austyn or depressive episode, in full remission 464820290 F32.5 well controlled on celexa Skin lesion 74144449 L98 .9 mole on back that needs to be checked [id number] Shannen gill MD Main Office [address] [place] [address] 12/04/2017 10:16:01 12/04/2017 10:57:30 Pruritic rash 25960129 L28.2 most likley contact dermatitis to wearing a new shirt or neck pillow with perfuse on it, also scabies as below, tx with prednisone , if nto better see adele Infestatio n by Sarcoptes scabiei dani hominis 336458718 B86 tx as instructed [id number] Shannen gill MD Main Office [address] [place] [address] 02/10/2018 10:35:52 02/10/2018 11:15:02 Achilles tendinitis 05418579 M76.61 pt to ice, rest, wear sneakers, stretch, set up PT and if not better call for podiatry referral, med as below with food, stop if any GI upset Single austyn or depressive episode, mild 857283771 F32.0 pt stopped meds, feels her mood is good. [id number] Shannen gill MD Main Office [address] [facility] [address] [place] [address] 08/11/2018 15:20:07 08/11/2018 16:10:53 Adult health examination 117204641 Z00.00 pt will set up mammogram, is overdue, she colonoscop y utd, and no pap needed. Screening for malignant neoplasm of breast 827031237 Z12.39 pt to set up appt Hypercholesterolemia 136 12031 E78.2 check fasting, is on WW Fatigue 62755997 R53.83 check sugar Major depr ession in remission 24014915 F32.5 on celexa 10mg, works and tolerates it well [id number] Shannen gill MD Main Office [address] [place] [address] 03/30/2022 14:52:10 03/30/2022 16:02:09 Adult health examination 149570383 Z00.00 Pt is in good general health. Social and family history reviewed. Immunizati ons reviewed, advised annual flu shot, can get at work, rec shingles vaccine. She is up to date oneye providers, due for dentist, mammogram up to date, colon up to date, Reviewed diet and exercise. Hypercholesterolemia 136 30122 E78.2 Acquired hypothyroidism 502566619 E03.9 Insomnia 210740147 G47.0 9 discussed sleep hygeine, use melatonin at night, do no stay in bed awake for more than 20 min, do alterative choice until sleep and then return to bed, pre worry , progressiv e relaxation , bed later, she is getting 6 hour but goes to bed early. Add exericise Major depr ession single episode, in partial remission 04299689 F32.4 stable, no meds at this time Screening for malignant neoplasm of breast 965869228 Z12.39 has appt in apr Screening for malignant neoplasm of colon 888584419 Z12.11 pt to set up appt [id number] KARLA OCHOA MD Main Office [address] [place] [address] 11/15/2023 08:05:18 11/15/2023 08:46:30 Adult health examination 355544834 Z00.00 Health Maintenanc e FemaleA) Patient was [...] refusedTdA P: allergicZo ster: never had chicken aphHON05: due at 33MEJM18: due at 44LFR47:PC V15:COVID: 07/06/2020 , 07/27/2020, 04/14/2021 D) Routine blood work orderedE) Updated patient's history RTC in one year for annual exam or sooner if any acute complaints Acquired hypothyroidism 568021048 E03.9 - c/w levothyrox ine 50mcg- will check levels Hypercholesterolemia 136 26349 E78.2 Insomnia 030394084 G47.0 9 - currently under good control- counselled on sleep hygiene Fatigue 82824497 R53.83 Z00.00 Bone density finding 385 456928 M85.89 Nicotine dependence 5629 4008 F17.200 - pt started smoking again after approximat don 15 years of stopping- currently smoking 4 cigs a day- is thinking about quitting [id number] KARLA OCHOA MD Main Office [address] [place] [address] 02/25/2024 13:23:27 02/25/2024 13:52:51 Acquired hypothyroidism [id number] E03.9 - c/w levothyrox ine 75mcg- recent levels were normal done on 01/2024 Hypercholesterolemia 136 73523 E78.2 - ASCVD score of 7.3%- need [...] levels.- Eat more fruits and veggies. Insomnia [id number] G47.0 9 - currently under good control- counselled on sleep hygiene Nicotine dependence [id number] F17.200 - pt started smoking again after approximat don 15 years of stopping- currently smoking 4 cigs a day- is thinking about quitting Elevated blood-pressure reading without diagnosis of hypertension [id number] R03.0 - BP today is 138/83- pt is usually under very good control however had a very stressful visit prior to seeing MD today Tachycardia [id number] R00. 0 - HR noted to be 110, similar on repeat- elevated HR due to tachycardi a- RTC in one week, if no improvemen t EKG- ED precaution s given [id number] KARLA OCHOA MD Main Office [address] [address] [place] [address] 03/03/2024 10:40:41 03/03/2024 11:19:00 Elevated blood-pressure reading without diagnosis of hypertension [id number] R03.0 - BP today is 132/81 improved from last time- pt is usually under very good control however had a very stressful visit prior to seeing today- pt was advised to get BP machine to check her blood pressure at home- RTC in May as pt will get BP machine in April Tachycardia [id number] R00. 0 - resolved- HR today is 94 [id number] KARLA OCHOA MD Main Office [address] [address] [place] [address] 06/04/2024 08:35:22 06/04/2024 09:08:41 Essential hypertension [id number] I10 - oscillatin g between goal and [...] ve trouble with your vision. Acquired hypothyroidism [id number] E03.9 - pt has stopped levothyrox ine [...] Sood Member ID Guarantor Name 11/26/2024 1 [facility] (MEDICARE REPLACEMEN T/ADVANTAG E - PPO) [id number] Eugenia Judde [id number] Eugenia Juan Tahmina 02/25/2024 1 [employer] (POS) [id number] Eugenia Juan Tahmina [id number] Eugenia Juan Tahmian 02/25/2024 1 [facility] (O) [id number] Eugenia Juan Tahmina [id number] Eugenia Martel Notes Date Note Type Note Provider Name and Address Organization Details Recorded Time 2 text/html Medicare Annual Wellness VisitReported by Patient Generic HPI TemplateReported by Patient Physical age 68, 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 KARLA OCHOA MD [address], [phone], [facility] [place] 02/25/2024 14:01:05 4 text/html ROS as noted [...] cause some anxiety. KARLA OCHOA MD [address], [phone], [facility] [place] 03/03/2024 11:18:35 4 text/html ROS as noted [...] average from 130-135/80-86. KARLA OCHOA MD [address], [phone], [facility] [place] 06/04/2024 09:11:40 OBGyn Episode No OBEpisode recorded.
--- OUTSIDE RECORDS SUMMARY | 2025-06-15 13:22 | XMS_ITS | Clinical Summary ---
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 [address] [place] [phone] PCP - General Internal Medicine 06/10/24
== END 2025-06-15 11:13 | disposition home or self-care (01) ==
LOC: HO.HMGCX 11:12
PROVIDERS: PCP Physician Assistant Medical; Visit Provider Physician Assistant Medical
DX: E07.9 Disorder of thyroid, unspecified (principal)
CPT/HCPCS: 76536

== ENCOUNTER → 2025-06-15 11:14 | Outpatient (BNV) | payer MEDICARE, SELFPAY | PROVIDERS: PCP Physician Assistant Medical; Visit Provider Radiology Diagnostic Radiology | DX: E07.9 Disorder of thyroid, unspecified (principal) | CPT/HCPCS: 76536 ==

== ENCOUNTER 2025-07-01 08:42 | Outpatient (REF) | payer MEDICARE, SELFPAY ==
--- NOTE | ~2025-07-01 | MM_ITS ---
EXAMINATION: DXA BONE DENSITY AXIAL HISTORY: M81.0 - Age-related osteoporosis without current pathological fracture TECHNIQUE: Baboo Dual energy absorptiometry (DEXA) of the lumbar spine, total left hip, and femoral neck was performed. COMPARISON: There are no prior studies for comparison. FINDINGS: The bone mineral density of the lumbar spine is 0.874 g/cm2, corresponding to a T-score of -2.7, and a Z-score of -1.7. This is indicative of osteoporosis. The bone mineral density of the left total hip is 0.942 g/cm2, corresponding to a T-score of -0.5, and a Z-score of 0.4. This is indicative of normal bone mineral density. The bone mineral density of the left femoral neck is 0.785 g/cm2, corresponding to a T-score of -1.8, and a Z-score of -0.6. This is indicative of osteopenia. FRACTURE RISK: The FRAX index suggests a risk of major osteoporotic fracture of 10.4%, and of hip fracture 1.6%. MM/XR DEXA axial skeleton IMPRESSION: Based on bone mineral density, and according to World Health Organization (WHO) criteria, the diagnosis is consistent with osteoporosis. Statistically, 68% of repeat scans fall within 1 SD (+/- 0.010 g/cm2 for AP spine L1-L4) and 1 SD (+/- 0.012 g/cm2 for femur total) FRAX is a trademark of the [employer] [place] for Metabolic Bone Disease, a World Health Organization (WHO) Collaborating Center. Electronically signed by: Raza Oliveira MD 07/01/2025 10:41 AM [facility]
--- OUTSIDE RECORDS SUMMARY | 2025-07-01 09:12 | XMS_ITS | Clinical Summary ---
Author Organization [facility] Address [address] [place] [phone] Phone Care Team Providers Care Disability Benefits Specialist Name Role Phone Gypsy Vallejo MD Primary [...] [employer] [place] [employer] Care Teams Disability Benefits Specialist Relationship Specialty Start Date End Date Gypsy Vallejo MD [address] [facility] [address] [place] [phone] PCP - General Internal Medicine 06/10/24
== END 2025-07-01 08:43 | disposition home or self-care (01) ==
LOC: HO.MAMMO 08:42
PROVIDERS: PCP Physician Assistant Medical; Visit Provider Physician Assistant Medical
DX: M81.0 Age-related osteoporosis without current pathological fracture (principal); Z12.31 Encounter for screening mammogram for malignant neoplasm of breast
CPT/HCPCS: 77063; 77067; 77080

== ENCOUNTER → 2025-07-01 09:15 | Outpatient (BNV) | payer MEDICARE, SELFPAY | PROVIDERS: PCP Physician Assistant Medical; Visit Provider Radiology Diagnostic Radiology | DX: E28.39 Other primary ovarian failure (principal) | CPT/HCPCS: 77080 ==